=== PATIENT | female | born 1950 | race Caucasian/White ===

== ENCOUNTER 2018-09-08 08:54 | Observation (INO) ==
[2018-09-08] MEDS ORDERED: ASPIRIN CHEW 324 MG PO STA (09:16)
[2018-09-08 09:35] LABS: Basophils # (auto) 0.04 K/uL (0-0.2); Basophils % (auto) 0.5 %; Eosinophils # (auto) 0.13 K/uL (0-0.5); Eosinophils % (auto) 1.7 %; Hematocrit (blood only) 35.7 % (37-47); Hemoglobin 12.1 g/dL (12.0-16.0); Immature Granulocytes # (auto) 0.02 K/uL (0.00-0.02); Immature Granulocytes % (auto) 0.3 %; Lymphocytes # (auto) 1.54 K/uL (1.2-3.4); Lymphocytes % (auto) 20.7 %; Mean Corpuscular Hgb Conc 33.9 g/dL (32-36); Mean Corpuscular Volume 86.2 fL (80-100); Mean Platelet Volume 9.3 fL (7.4-10.4); Monocytes # (auto) 0.55 K/uL (0.11-0.59); Monocytes % (auto) 7.4 %; Neutrophils # (auto) 5.15 K/uL (1.4-6.5); Neutrophils % (auto) 69.4 %; Platelet Count 327 K/uL (130-400); RDW Coefficient of Variation 12.9 % (11.5-14.5); Red Blood Count 4.14 M/uL (4.2-5.4); White Blood Count 7.43 K/uL (4.8-10.8)
--- NOTE | 2018-09-08 09:35 | XRay Report ---
SINGLE VIEW CHEST CLINICAL HISTORY: Atypical chest pain. FINDINGS: An AP, portable, upright chest radiograph is obtained. No prior studies are available for c omparison at the time of dictation. The cardiomediastinal silhouette is unremarkable, noting atheros clerotic calcification of the thoracic aorta. There is mild bibasilar atelectasis. The lungs and pleu ral spaces are otherwise clear. No pneumothorax is seen. The skeletal structures are osteopenic. The bony thorax is grossly intact. IMPRESSION: No active disease in the chest. Electronically signed by: Gregg Merino M.D. 09/08/2018 9:34 AM
[2018-09-08 09:50] LABS: BUN Creatinine Ratio 21.2 (10-20); Calcium 10.1 mg/dl (8.5-10.1); Creatinine Clr Calc Pharmacy 65.8 ml/min; Est GFR (African American) 83.9; Est GFR (Non-African American) 72.4; Potassium 4.1 mmol/L (3.5-5.1)
[2018-09-08 09:53] LABS: Albumin Globulin Ratio 1.1 (0.9-2); Bilirubin,Total 0.3 mg/dl (0.2-1); Globulin 3.6 gm/dl (2.5-4.0); Total Protein 7.6 gm/dl (6.4-8.2)
[2018-09-08 10:05] LABS: Partial Thromboplastin Time 27.1 Seconds (21.0-31.0); Prothrombin Time 9.8 Seconds (9.0-12.0)
[2018-09-08 10:09] LABS: D Dimer 540 ug/L FEU (0-500)
[2018-09-08] MEDS ORDERED: OPTIRAY 320 125ml IV PRN (11:01)
--- NOTE | 2018-09-08 11:06 | CT Scan Report ---
CT ANGIOGRAM OF THE CHEST CLINICAL HISTORY: Atypical chest pain. Dyspnea. COMPARISON STUDY: Chest x-ray dated 09/08/2018. TECHNIQUE: Following the IV administration of 69 cc of Optiray 320, CT angiogram of the chest was per formed from the upper abdomen to the thoracic inlet utilizing the pulmonary embolus protocol. Images are reviewed in the axial, sagittal, and coronal planes. 3-D MIPS images are created and assessed. IV contrast was administered without complication. A dose lowering technique was utilized adhering to the principles of ALARA. CT DOSE: 254.02 mGy.cm FINDINGS: Thyroid: Imaged portions of the thyroid gland are normal in size and attenuation. Thoracic aorta: There is atherosclerotic calcification of the thoracic aorta, which is normal in lavell elisabeth and demonstrates standard 3-vessel arch anatomy. No dissection is seen. Pulmonary vasculature: The pulmonary trunk is normal in caliber. There are no filling defects identif ied in main, lobar, or segmental pulmonary branches to suggest pulmonary embolus. Heart: The heart is normal in size and without pericardial effusion. Lungs and pleural spaces: There is no airspace consolidation or pleural effusion. The trachea and jeniffer tral airways are clear. Dependent atelectasis is noted. There is mild diffuse peribronchial thickenin g. Mediastinum: There is no mediastinal lymphadenopathy. Darby: Clear. Axillae: There is no axillary lymphadenopathy. Upper abdomen: There is a small hiatal hernia. Partially visualized upper abdominal viscera is otherw ise within normal limits. Skeletal structures: The skeletal structures are osteopenic. No lytic or blastic bony lesions are see n. IMPRESSION: 1. There is no evidence of pulmonary embolus in the main, lobar, or segmental pulmonary arteries. 2. There is no airspace consolidation or pleural effusion. 3. Mild diffuse peribronchial thickening suggests reactive air disease. Clinical correlation will be required. Electronically signed by: Gregg Merino M.D. 09/08/2018 11:04 AM
--- NOTE | 2018-09-08 11:49 | History & Physical Report ---
Date of Service September 08, 2018 Assessment & Plan (1) Chest pain: Patient presents with chest pain or palpitations. She is a strong family history. She does take Zocor and aspirin. Reportedly she had a work-up 5 years ago in [place] which was unremarkable. In the ER she had negative troponin she had normal EKG showed a negative CTA and chest x-ray (although there might be some peribronchial thickening). Patient be brought in under observation she will be monitored have serial troponins checked and a stress echocardiogram is ordered for the morning with the assumption that the testing will be unremarkable. She will be kept n.p.o. after midnight. Lovenox abuse for DVT prevention. Maintained on aspirin 81 and Zocor 20. Her vitamins and probiotics will be held at this time History of Present Illness Primary Care Provider: BRAYAN SANCHES 67-year-old female who spends half her time in [place] half her time here presents with palpitations. These usually occur at night when resting. They are a feeling of intense heartbeat and her central to left chest. They are improved with movement and not worsened with movement. There is no associated symptoms with it. Patient does suffer from persistent allergies. She also has had a GI work-up in [place] most recently and did have some gastritis and reflux. Patient feels some of the symptoms did begin after starting a new brand of fish oil. The patient typically does see caregivers in the area including [facility] allergy Dr. Rojo and dermatology Dr. Walker. In the emergency department the patient had negative EKG she had no acute elevation of troponin Patient had a d-dimer 540 (normal is 500) and a CT angiogram with is unremarkable for pulmonary embolism does show some bronchial thickening consistent with her previous allergic and likely reflux state Home Medications Home Medications Medication Instructions Recorded Confirmed Type Ca-D3-mag lm-hrty-vav-gris-bor 2 tab PO QAM 09/08/18 09/08/18 History [Calcium 600-D3 Plus] Lactobac. rhamnosus GG-inulin 1 cap PO QAM 09/08/18 09/08/18 History [Culturelle Probiotics] aspirin [Aspir-Low] 81 mg PO DAILY 09/08/18 09/08/18 History coenzyme Q10 100 mg PO BID 09/08/18 09/08/18 History qfqglgch-ehu-SM-Ca carb-vit K 1 tab PO QAM 09/08/18 09/08/18 History [Women's 50 Plus Daily Formula] omega-3 fatty acids-fish oil [Fish 1 cap PO BID 09/08/18 09/08/18 History Oil] simvastatin 20 mg PO HS 09/08/18 09/08/18 History Past Med/Surg History Medical History Sinus complaint (Acute) Gastritis Seasonal allergies Family History Sister Heart disease Brother Heart disease Social History marital status: Current Living Situation: Spouse current occupational status: retired Feels Safe at Home: Yes Smoking Status: Never smoker Review of Systems Review of Systems: ROS: well nourished well developed. No double vision blurry vision No problems with speech or swallowing complains of sinus discharge which is clear and typical for her Planes of rapid pressure of heartbeat although her pulse of the time is in the 80s. No associated symptoms improved with exertion No Wheezing or breathing issues No abdominal pain nausea vomiting diarrhea changes in appetite or weight No burning urine urine frequency or changes in color No focal joint pain or muscle pain No skin rashes or oral lesions No unusual bruising or bleeding No focused back pain or numbness or loss of strength No changes in memory or confusion Physical Exam Physical Exam: The patient appeared well nourished and normally developed. Vital signs as documented. Head exam is unremarkable. normocephalic, atraumatic Neck is without jugular venous distension, thyromegaly, or lymphademopathy Lungs are clear to auscultation and percussion. Cardiac exam reveals Rhythm is regular. First and second heart sounds normal. Abdominal exam reveals normal bowel sounds, no masses, no organomegaly Extremities are nonedematous and both pedal pulses are present Neurologic exam is A&Ox3, no focal deficits, strength is equal bilateral Psychologically seems neither anxious or depressed Skin is warm Dry without bruises or lesions Results & Data Vital Signs (Past 12 Hours) Vital Signs Temp Pulse Pulse Resp BP BP Pulse Ox 09/08/18 11:13 75 17 151/75 H 98 09/08/18 09:30 73 18 150/102 H 94 09/08/18 09:09 81 19 171/102 H 98 09/08/18 08:58 36.7 C 88 18 176/88 H [address] angiogram . There is no evidence of pulmonary embolus in the main, lobar, or segmental pulmonary arteries. There is no airspace consolidation or pleural effusion. Mild diffuse peribronchial thickening suggests reactive air disease Chest x-ray is negative EKG shows normal sinus rhythm without any acute changes (1) Chest pain Chest pain type: unspecified Qualified Code(s): R07.9 - Chest pain, unspecified
[2018-09-08] MEDS ORDERED: ONDANSETRON INJ 2 MG/ML 2 ML VIAL IV PRN (13:09)
[2018-09-08] MEDS ORDERED: ALUMINUM/MAGNESIUM SUSP 30 ML UDC PO PRN (13:09)
[2018-09-08] MEDS ORDERED: NITROGLYCERIN SL 0.4 MG/TAB TAB SL PRN (13:09)
[2018-09-08] MEDS ORDERED: MoRPHine SULFATE 2 MG/ML CARP IV PRN (13:09)
[2018-09-08] MEDS ORDERED: ACETAMINOPHEN 325 MG TAB PO PRN (13:09)
[2018-09-08] MEDS ORDERED: ENOXAPARIN INJ 40 MG/0.4 ML SYR SQ SCH (14:00)
--- NOTE | 2018-09-08 15:51 | Emergency Department Note ---
Entered by Lyndsey Kearney acting as a scribe for Erasmo Marks MD History of Present Illness General Chief complaint: Chest Pain Stated complaint: CHEST PAIN PRESSURE Time Seen by Provider: 09/08/18 09:08 Source: patient History of Present Illness Onset (ago): day(s) 5 Location: chest Pain Consistency: + intermittent Maximum Pain Intensity: 4 Quality: + other (chest pressure) Relieved By: not by medication (baby aspirin) Exacerbated By: + movement (exertion) Associated symptoms: + shortness of breath (with exertion) and + other (racing heart rate, heart pounding) The patient is a 67 year old female that is presenting to the Emergency Room with complaints of intermittent episodes of chest pressure that started 4-5 days ago. The patient reports that she feels like her blood pressure is high at night and that she wakes up secondary to her heart pounding. She states that she has chest pressure during these episodes and that she feels like her heart is racing. The patient reports that her blood pressure delon to 160/93 during one episode. She states that her symptoms were worse last night than they had been on previous nights. She notes that she has slight shortness of breath with exertion with associated pressure in her chest. She reports that she has had similar episodes in the past 6 months but that they usually do not last for extended periods of time. The patient notes that she has significant family history for heart disease as both her brother and sister have had heart attacks in their 50s. She notes that her brother had 2 heart attacks in his 40s and at the age of 58. She states that her sister had a heart attack at the age of 58. The patient denies any personal medical history of heart disease or atrial fibrillation but notes that she does have Factor V Leiden. She denies any history of lung issues. She denies any history of thyroid issues. She notes that she has a history of sinus issues but that she has not been ill in recent months. She reports that she has a history of acid reflux. She denies taking any blood thinners other than a daily baby aspirin. She notes that her blood glucose levels are occasionally elevated. She denies having any recent heart work up or stress tests. She notes her last stress test was 5 years ago and that it was normal at that time. Home Medications Home Medications Medication Instructions Recorded Confirmed Type Ca-D3-mag we-rxse-fey-gris-bor 2 tab PO QAM 09/08/18 09/08/18 History [Calcium 600-D3 Plus] Lactobac. rhamnosus GG-inulin 1 cap PO QAM 09/08/18 09/08/18 History [Culturelle Probiotics] aspirin [Aspir-Low] 81 mg PO DAILY 09/08/18 09/08/18 History coenzyme Q10 100 mg PO BID 09/08/18 09/08/18 History eckipnam-lie-WB-Ca carb-vit K 1 tab PO QAM 09/08/18 09/08/18 History [Women's 50 Plus Daily Formula] omega-3 fatty acids-fish oil [Fish 1 cap PO BID 09/08/18 09/08/18 History Oil] simvastatin 20 mg PO HS 09/08/18 09/08/18 History Past Med/Surg History Medical History Sinus complaint (Acute) Gastritis Seasonal allergies Family History Sister Heart disease Brother Heart disease Social History Preferred Language: Chinese Communication Ability: Effective Beliefs That Will Affect Care: None marital status: Current Living Situation: Spouse current occupational status: retired Other Information That Helps Us Care for You: No Feels Safe at Home: Yes Safety Concerns: Feels Safe At This Time Smoking Status: Never smoker Hx Alcohol Use: No Hx Substance Use: No Review of Systems See HPI for pertinent positives & negatives. and A total of 10 systems reviewed and were otherwise negative Physical Exam Vital Signs Vital Signs - 24 hr 09/08/18 08:58 09/08/18 09:09 09/08/18 09:30 Temperature 36.7 C Temperature Source Oral Sepsis Recent Fever Within 48 Hours No Sepsis Action Taken by Nursing No Action Required Pulse Rate 88 Pulse Rate [Apical] 81 73 Pulse Rhythm Regular Pulse Rhythm [Apical] Regular Regular Pulse Strength Normal Pulse Strength [Apical] Normal Respiratory Rate 18 19 18 Respiratory Effort / Characteristics Non-Labored Non-Labored Non-Labored Spontaneous Respiratory Depth Normal Normal Normal Respiratory Pattern Regular Regular Regular Blood Pressure 176/88 H Blood Pressure [Right Arm] 171/102 H 150/102 H Blood Pressure Mean 117 Blood Pressure Mean [Right Arm] 125 118 Blood Pressure Position Sitting Blood Pressure Position [Right Arm] Sitting Pulse Oximetry 97 98 94 Oxygen Delivery Method Room Air Room Air Room Air Oxygen Flow Rate 0 09/08/18 11:13 09/08/18 12:43 09/08/18 13:00 Temperature 37.0 C Temperature Source Oral Sepsis Recent Fever Within 48 Hours Sepsis Action Taken by Nursing Pulse Rate 68 Pulse Rate [Apical] 75 91 H Pulse Rhythm Pulse Rhythm [Apical] Regular Regular Pulse Strength Pulse Strength [Apical] Normal Respiratory Rate 17 18 18 Respiratory Effort / Characteristics Non-Labored Spontaneous Non-Labored Respiratory Depth Normal Normal Respiratory Pattern Regular Regular Blood Pressure 145/97 H Blood Pressure [Right Arm] 151/75 H 121/82 Blood Pressure Mean Blood Pressure Mean [Right Arm] 100 95 Blood Pressure Position Blood Pressure Position [Right Arm] Pulse Oximetry 98 97 95 Oxygen Delivery Method Room Air Room Air Room Air Oxygen Flow Rate General: Non-ill appearing older female in no acute distress. HEENT: Normal cephalic atraumatic. Pupils are equal round and reactive to light. Extraocular movements are intact. Oropharynx is pink with moist mucous membranes. No swelling of the mouth lips or tongue. Neck: Supple with a midline trachea. No meningeal signs or stiffness, no JVD or bruits. No Stridor. Chest: Clear to auscultation bilaterally. No wheezes or rhonchi. No increased work of breathing. Heart: regular rate and rhythm. Abdomen: Soft nontender, nondistended without rebound guarding or rigidity. Extremities: No cyanosis clubbing or edema. No calf tenderness or asymmetry Spine/Back. Non tender to palpation. No CVA tenderness Skin: Good turgor without rashes. Neurologic exam: Cranial nerves two through 12 are intact. Motor and sensation are intact and symmetrical throughout. Course 0915:The patient was evaluated in room B03B. A complete history and physical examination was performed. 1027: I reevaluated the patient who is resting comfortably. I ordered a CT scan of the patient's chest and a repeat troponin at this time. 1126: I reevaluated the patient who continues to rest comfortably. 1140: I discussed the patient's case with Dr. Cao, [facility], who will evaluate the patient for further management and care. 1150: Upon reevaluation, the patient is resting comfortably. I discussed laboratory and radiographic results with the patient. She verbalized agreement of the treatment plan. The patient will be evaluated for further management and care. Consultations Consultation #1: I discussed the patient's case with Dr. Cao [facility], who wi ll evaluate the patient for further management and care. Time: 11:40 Administered Medications Discontinued Medications Aspirin (Aspirin) 324 mg PO NOW STA Stop: 09/08/18 09:17 Last Admin: 09/08/18 09:36 Dose: 324 mg Documented by: [id number] Enoxaparin Sodium (Lovenox) 40 mg SQ Q24H RENO Stop: 10/08/18 13:59 Last Admin: 09/08/18 15:03 Dose: Not Given Documented by: [id number] Ioversol (Optiray 320 125ml) 69 ml IV ONCE PRN PRN Reason: Interaction Checking Stop: 09/12/18 11:00 Last Admin: 09/08/18 11:01 Dose: 69 ml Documented by: [id number] Medical Decision Making Differential Diagnosis Differential diagnosis includes: Etiologies such as acute coronary syndrome, hypertension, palpitations, arrhythmia, PE, electrolyte or metabolic abnormalities as well as others were entertained. Medical Records Attestation: I reviewed the patient's medical records. Home Medications Current Medication List: was personally reviewed by me Laboratory Data Attestation: I reviewed the patient's lab results. Result diagrams: 09/08/18 09:24 09/08/18 09:24 Lab Results 09/08/18 09/08/18 09/08/18 Range/Units 09:24 09:24 09:24 WBC 7.43 (4.8-10.8) K/uL RBC 4.14 L (4.2-5.4) M/uL Hgb 12.1 (12.0-16.0) g/dL Hct 35.7 L (37-47) % MCV 86.2 (80-100) fL MCH 29.2 (25-34) pg MCHC 33.9 (32-36) g/dL RDW Std Deviation 41.0 (36.4-46.3) fL RDW Coeff of Don 12.9 (11.5-14.5) % Plt Count 327 (130-400) K/uL MPV 9.3 (7.4-10.4) fL Immature Gran % (Auto) 0.3 % Neut % (Auto) 69.4 % Lymph % (Auto) 20.7 % [place] % (Auto) 7.4 % Eos % (Auto) 1.7 % Baso % (Auto) 0.5 % Immature Gran # (Auto) 0.02 (0.00-0.02) K/uL Neut # (Auto) 5.15 (1.4-6.5) K/uL Lymph # (Auto) 1.54 (1.2-3.4) K/uL [place] # (Auto) 0.55 (0.11-0.59) K/uL Eos # (Auto) 0.13 (0-0.5) K/uL Baso # (Auto) 0.04 (0-0.2) K/uL PT 9.8 (9.0-12.0) Seconds INR 1.0 (0.9-1.1) APTT 27.1 (21.0-31.0) Seconds PTT Ratio 1.0 D-Dimer 540 H* (0-500) ug/L FEU Sodium 139 (136-145) mmol/L Potassium 4.1 (3.5-5.1) mmol/L Chloride 107 (98-107) mmol/L Carbon Dioxide 27 (21-32) mmol/L Anion Gap 6.0 (3-11) BUN 18 (7-18) mg/dl Creatinine 0.84 (0.6-1.2) mg/dl Est Cr Clr Drug Dosing 65.8 ml/min Est GFR ( Amer) 83.9 Est GFR (Non-Af Amer) 72.4 BUN/Creatinine Ratio 21.2 H (10-20) Glucose 101 H (70-99) mg/dl Calcium 10.1 (8.5-10.1) mg/dl Total Bilirubin 0.3 (0.2-1) mg/dl AST 20 (15-37) U/L ALT 34 (12-78) U/L Alkaline Phosphatase 89 (45-117) U/L POC Troponin I (0-0.045) ng/ml Total Protein 7.6 (6.4-8.2) gm/dl Albumin 4.0 (3.4-5.0) gm/dl Globulin 3.6 (2.5-4.0) gm/dl Albumin/Globulin Ratio 1.1 (0.9-2) Lipase 100 (73-393) U/L 09/08/18 09/08/18 Range/Units 09:30 11:11 WBC (4.8-10.8) K/uL RBC (4.2-5.4) M/uL Hgb (12.0-16.0) g/dL Hct (37-47) % MCV (80-100) fL MCH (25-34) pg MCHC (32-36) g/dL RDW Std Deviation (36.4-46.3) fL RDW Coeff of Don (11.5-14.5) % Plt Count (130-400) K/uL MPV (7.4-10.4) fL Immature Gran % (Auto) % Neut % (Auto) % Lymph % (Auto) % [place] % (Auto) % Eos % (Auto) % Baso % (Auto) % Immature Gran # (Auto) (0.00-0.02) K/uL Neut # (Auto) (1.4-6.5) K/uL Lymph # (Auto) (1.2-3.4) K/uL [place] # (Auto) (0.11-0.59) K/uL Eos # (Auto) (0-0.5) K/uL Baso # (Auto) (0-0.2) K/uL PT (9.0-12.0) Seconds INR (0.9-1.1) APTT (21.0-31.0) Seconds PTT Ratio D-Dimer (0-500) ug/L FEU Sodium (136-145) mmol/L Potassium (3.5-5.1) mmol/L Chloride (98-107) mmol/L Carbon Dioxide (21-32) mmol/L Anion Gap (3-11) BUN (7-18) mg/dl Creatinine (0.6-1.2) mg/dl Est Cr Clr Drug Dosing ml/min Est GFR ( Amer) Est GFR (Non-Af Amer) BUN/Creatinine Ratio (10-20) Glucose (70-99) mg/dl Calcium (8.5-10.1) mg/dl Total Bilirubin (0.2-1) mg/dl AST (15-37) U/L ALT (12-78) U/L Alkaline Phosphatase (45-117) U/L POC Troponin I < 0.03 < 0.03 (0-0.045) ng/ml Total Protein (6.4-8.2) gm/dl Albumin (3.4-5.0) gm/dl Globulin (2.5-4.0) gm/dl Albumin/Globulin Ratio (0.9-2) Lipase (73-393) U/L Imaging Data Radiologist's Impression: Radiology results as stated below per my review and the radiologist's interpretation: SINGLE VIEW CHEST CLINICAL HISTORY: Atypical chest pain. FINDINGS: An AP, portable, upright chest radiograph is obtained. No prior studies are available for comparison at the time of dictation. The cardiomediastinal silhouette is unremarkable, noting atherosclerotic calcification of the thoracic aorta. There is mild bibasilar atelectasis. The lungs and pleural spaces are otherwise clear. No pneumothorax is seen. The skeletal structures are osteopenic. The bony thorax is grossly intact. IMPRESSION: No active disease in the chest. Electronically signed by: Gregg Merino M.D. 09/08/2018 9:[address] ANGIOGRAM OF THE CHEST CLINICAL HISTORY: Atypical chest pain. Dyspnea. COMPARISON STUDY: Chest x-ray dated 09/08/2018. TECHNIQUE: Following the IV administration of 69 cc of Optiray 320, CT angiogram of the chest was performed from the upper abdomen to the thoracic inlet utilizing the pulmonary embolus protocol. Images are reviewed in the axial, sagittal, and coronal planes. 3-D MIPS images are created and assessed. IV contrast was administered without complication. A dose lowering technique was utilized adhering to the principles of ALARA. CT DOSE: 254.02 mGy.cm FINDINGS: Thyroid: Imaged portions of the thyroid gland are normal in size and attenuation. Thoracic aorta: There is atherosclerotic calcification of the thoracic aorta, which is normal in caliber and demonstrates standard 3-vessel arch anatomy. No dissection is seen. Pulmonary vasculature: The pulmonary trunk is normal in caliber. There are no filling defects identified in main, lobar, or segmental pulmonary branches to suggest pulmonary embolus. Heart: The heart is normal in size and without pericardial effusion. Lungs and pleural spaces: There is no airspace consolidation or pleural effusion. The trachea and central airways are clear. Dependent atelectasis is noted. There is mild diffuse peribronchial thickening. Mediastinum: There is no mediastinal lymphadenopathy. Darby: Clear. Axillae: There is no axillary lymphadenopathy. Upper abdomen: There is a small hiatal hernia. Partially visualized upper abdominal viscera is otherwise within normal limits. Skeletal structures: The skeletal structures are osteopenic. No lytic or blastic bony lesions are seen. IMPRESSION: 1. There is no evidence of pulmonary embolus in the main, lobar, or segmental pulmonary arteries. 2. There is no airspace consolidation or pleural effusion. 3. Mild diffuse peribronchial thickening suggests reactive air disease. Clinical correlation will be required. Electronically signed by: Gregg Merino M.D. 09/08/2018 11:04 AM ECG Data Attestation: I personally reviewed and interpreted this ECG as follows: Indication: chest pain Rate (beats per minute): 76 Rhythm: normal sinus Findings: no PAC, no PVC, no ST depression, no ST elevation, no acute ischemic change and no ectopy Comparison ECG Date: no prior available Additional Comments: Repeat ECG: normal sinus at a rate of 74 bpm without any acute ischemic changes or ectopy. No significant changes noted from ECG taken earlier today and reported above. Blood Pressure Blood Pressure Findings: Elevated blood pressure Blood Pressure Disposition: further management by hospitalist BRANDT Narrative This patient comes in as described above. She was placed in room B3. She has had some chest heaviness and palpitation type symptoms for the last couple days mostly at night. No shortness of breath. She has no known cardiac disease and had a reported negative cardiac work-up about 5 years ago. She does however have very strong family history with siblings having cardiac disease in the 40s and 50s. Additionally, she does have factor V Leiden deficiency. IV access established, EKG, chest x-ray, and multiple blood testing was obtained. EKG weiner s not show any definite acute ischemic changes. There is no old available for for comparison as she has never been to this hospital before. I did a second EKG and there is no significant change compared to the first. She had 2 troponins done in the ER which were both negative and unchanged between each other. She has no significant electrolyte or metabolic abnormalities. Chest x- ray was unremarkable. there is no evidence suggest congestive heart failure, pneumonia ,or pneumothorax. Her d-dimer was mildly elevated at just over 500 and I did a chest CT there is no evidence of PE or other significant pathology to explain her symptoms. Given her cardiac risk factors ,I do think she needs to be admitted/observe for cardiac rule out she will likely need further cardiac evaluation and follow-up as well. I have consulted the [facility] hospitalist and they saw her in the ER for these measures. Impression & Plan Chest pain, Factor V Leiden Discharge Plan Visit Data *Final* Discharge Date/Time: 09/08/18 12:43 Chief Complaint: Chest Pain Stated Complaint: CHEST PAIN PRESSURE ED Provider: Erasmo Marks Discharge Problem: Chest pain, Factor V Leiden Patient Disposition: Admitted As Inpatient Discharge Instructions Interventions: ED Discharge Assessment Last Done: 09/08/18 12:43 The scribe's documentation has been prepared under my direction and personally reviewed by me in its entirety. I confirm that the note above accurately reflects all work, treatment, procedures, and medical decision making performed by me.
[2018-09-08] MEDS ORDERED: SIMVASTATIN 20 MG TAB PO SCH (21:00)
[2018-09-09 06:53] LABS: BUN Creatinine Ratio 21.6 (10-20); Calcium 9.3 mg/dl (8.5-10.1); Creatinine Clr Calc Pharmacy 64.4 ml/min; Est GFR (African American) 82.8; Est GFR (Non-African American) 71.4; Potassium 4.2 mmol/L (3.5-5.1)
[2018-09-09] MEDS ORDERED: ASPIRIN 81 MG ECTAB PO SCH (09:00)
[2018-09-09] MEDS ORDERED: PERFLUTREN LIPID MICROSPHERE (DEFINITY) IV ONE (10:02)
--- NOTE | 2018-09-09 11:48 | Medical Student Progress Note ---
Date of Service September 09, 2018 Assessment & Plan (1) Chest pain: 67 yo F w/ hx of hyperlipidemia and fh of [place] here for observation and acardiac workup for chest pain, currently stable Chest pain likely secondary to GERD given cardiac workup has been negative: Serial Trops <.015 Unchanged EKG, with no signs of ST depression, elevation or T wave changes Negative CTA Negative CXR Stress Echo was normal Pt had been NPO since had been awaiting stress echo, safe to take pt off of NPO For chest pain, GI cocktail given prn Q6h, nitro prn, and morphine prn, and tyelnol prn q4 had been ordered Chest pain type: unspecified Qualified Code(s): R07.9 - Chest pain, unspecified (2) Palpitations: Telemetry showed pt was in sinus rhythm overnight and during the morning, no signs of tachycardia TSH was normal, r/o hyperthyroidism Palpitations not likely to have cardiac etiology, pt does state that she has anxiety; however, her anxiety had never been associated with palpitations in the past, consider metoprolol to provide pt with sx relief, would also be a good choice to control elevated blood pressure readings (3) Elevated blood pressure reading: Found to have elevated readings while 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 Followed up with PCP in [place] who recommended she start lisinopril and purchase a blood pressure cuff to take measurements at home. Pt did not start lisinopril due to side effect fear of developing dry cough. Pt was taking bp readings at home and was (4) Factor V Leiden: Takes aspirin daily, anticoagulation not indicated due to no hx of VTE (5) Sinus complaint: stable, CXR does show some peribronchial thickening most likely secondary to post nasal drip Supervising Attestation See my note for details Subjective Pt is a 67 yo F w/ pmh of hyperlipidemia and Factor V Leiden on Day 1 of admission for chest pain and palpitations. Chest has been intermittent for the last few months and is accompanied by slight shortness of breath w/ exertion. Pt remarks that chest pain feels like a pressure sitting on her chest and has felt the pressure has gotten worse since stopping her Ranitidine. Pt has been experiencing palpitations that usually start at night as the pt is ready to get into bed. In the last few days, these palpitations have lasted longer and recently woke the pt up from sleep. Pt has also noticed that her blood pressure readings have been elevated. She recently bought a blood pressure cuff and started taking her blood pressure throughout the day after her PCP had recommended she do so and had prescribed her lisinopril. Pt has not started taking the lisinopril. Upon admission to the ED, pt's bp was elevated at 150/100. Poc troponins were negative, but pt was admitted for observation. Today, pt states she is doing better and complains of no chest pain. She states that she did not experience any episodes of palpitations while on telemetry. pmh: hld, allergic rhinitis, gerd, hx cdiffe meds: aspirin, simvastatin, omega 3, lactobacillus, Ca, CoQ10 shx: sinus surgery, egd, colonoscopy fh: 2 brothers and 1 sister have coronary artery disease and hx of [place], brother of [place] Sh: , non smoker, no alcohol use Physical Exam Vital Signs (Past 24 Hours): Last Vital Signs Temp 36.7 C 09/09/18 08:03 Pulse 83 09/09/18 08:03 Resp 17 09/09/18 08:03 BP 139/77 09/09/18 08:03 Pulse Ox 96 09/09/18 08:03 Constitutional: WD/WN, vitals as above Eyes: PERRL, conjunctivae normal, anicteric sclerae ENMT: external ear and nose normal, oropharynx normal Neck: trachea midline, no thyromegaly Respiratory: normal respiratory effort, lungs clear to auscultation Cardiovascular: RRR, no murmur, no edema Gastrointestinal (Abdomen): normal bowel sounds, soft, nontender, no hepatosplenomegaly Musculoskeletal: no cyanosis or clubbing, extremities motor strength 5/5 IV on R. hand Results & Data Laboratory Results WBC: 7.43 RBC: 4.14 Hgb: 12.1 Hct: 35.7 Na: 140 K: 4.2 Cl: 107 HCO3: 28 BUN: 18 Cr: .83 Glu: 104 Ddimer: 540 Triglycerides: 211 TSH: 1.7 Trop1: <.015 Trop 2: <.015 Diagnostic Findings EKG: normul sinus rhythm, no acute changes on serial EKGs CXR: negative for acute processes CTA: unremarkable, athlerosclerosis of thoracic aorta visualized, some peribronchiole thickening
--- NOTE | 2018-09-09 14:57 | Discharge Summary ---
Date of Service September 09, 2018 Admission HPI Per Admitting Provider 67-year-old female who spends half her time in [place] half her time here presents with palpitations. These usually occur at night when resting. They are a feeling of intense heartbeat and her central to left chest. They are improved with movement and not worsened with movement. There is no associated symptoms with it. Patient does suffer from persistent allergies. She also has had a GI work-up in [place] most recently and did have some gastritis and reflux. Patient feels some of the symptoms did begin after starting a new brand of fish oil. The patient typically does see caregivers in the area including [facility] allergy Dr. Rojo and dermatology Dr. Walker. In the emergency department the patient had negative EKG she had no acute elevation of troponin Patient had a d-dimer 540 (normal is 500) and a CT angiogram with is unremarkable for pulmonary embolism does show some bronchial thickening consistent with her previous allergic and likely reflux state Principal Diagnosis Pt had no chest pain last night. She had no palpitations. She tolerated PO today. Pt states she has had ongoing issues with reflux. She went off of ranitidine and her reflux has been much more intense, particularly with spicy foods. If she eats fish for dinner, she does not have any issues. She had pizza a few nights ago and that was a problem. She has palpitations when this happens. She has been checking her BP at home and it is around 140 systolic. She was recommended to start lisinopril a few months ago by her PCP for elevated BP, however she did not start this due to ongoing issues with a cough and she was concerned this might make her cough worse. She is generally constipated and does not have a bowel movement daily. When she does, it is hard stool and difficult to pass. Pt denies fever, SOB, abd pain, n/v, LE pain or swelling. She does not drink much water. Discharge Exam Constitutional WD/WN, vitals as above Eyes normal visual landrum by confrontation and + anicteric sclerae Neck normal visual inspection and trachea midline Respiratory normal respiratory effort, lungs clear to auscultation Cardiovascular Rate/Rhythm: regular rate and regular rhythm Gastrointestinal (Abdomen) Inspection/Auscultation: abdomen not distended Percussion/Palpation: abdomen soft; abdomen nontender Musculoskeletal Head/Neck/Chest: normocephalic and head atraumatic Skin no rashes, warm and dry Neurologic awake; not confused Speech / Cognition: normal speech Psychiatric A+Ox3, euthymic affect Discharge Data Ordered Studies 09/08/18 10:18 CT angio chest PE protocol Stat Hospital Course (1) Chest pain: Patient presents with chest pain or palpitations. She is a strong family history. She does take Zocor and aspirin. Reportedly she had a work-up 5 years ago in [place] which was unremarkable. In the ER she had negative troponin she had normal EKG showed a negative CTA and chest x-ray (although there might be some peribronchial thickening). Trops neg x3 Stress ECHO WNL at 100% exertion. EF 60-65% and no wall motion abnormalities noted EKG NSR No tele events noted No chest pain or palpitations during admission Pt notes that she did not eat spicy food last night Maintained on aspirin 81 and Zocor 20. Pt is reluctant to start medication at this time. It does seem reasonable that her chest pain and palpitations are the result of her uncontrolled GERD. Discussed role of probiotics and use of marshmallow root extract as pt prefers to not use PPI or H2 lauren due to those not working or causing worsening sx in the past. Gave pt several options for BP control. She would like to continue working on her GERD sx and monitor her BP at home. She states she usually runs around 140s systolic. Advised that she could pursue a 4-8 week trial to see if controlling her GERD sx help with her BP and palpitations. Gave scripts for meds as listed below. Pt has f/u with PCP in [place] in November. Advised to discuss sooner if there are more BP issues. Total Time Total Time Spent Total Time Spent (In Minutes): >30 minutes Discharge Plan Discharge Items Patient Disposition: Home - Self-Care Reason For Visit: CHEST PAIN Discharge Diagnosis: chest pain Discharge Goals: Improve disease control, Improve function and Prevent disease Activity: Resume your previous activity Non-emergency contact: Primary Care Provider Call non-emergency contact if: you have any medication questions, your symptoms worsen and your pain is concerning for you Follow-up/Referrals: Cl Meier, [Primary Care Provider] - Diet: Low Sodium (2gm) Addtl Provider Instructions: You may find that a probiotic is helpful for your heartburn issues. A brand that I recommend is Jarrow EPS 5billion. You can buy this at [employer]. You may also find that drinking xin root extract is helpful for your heartburn. You can mix this in water and drink it on an empty stomach. Some people like to take it first thing in the morning, but you might find it helpful to take between lunch and dinner as it sounds like dinner is the meal that can be most troublesome for you. You can find this at [employer] as well, or online. It is also sold as a losange form that you can keep with you in case of unexpected trigger foods. I am giving you a prescription for two different blood pressure medications. You should check your BP daily and record your findings. If your BP remains over 140 (top number) and you continue to have palpitations at night, you should take the metoprolol. If your BP remains over 140 (top number) and the palpitations have resolved because your reflux is better controlled, you can use either the lisinopril that your PCP prescribed or the losartan, which does not have cough as a common side effect. Prescriptions: New metoprolol succinate 25 mg tablet extended release 24 hr 25 mg PO DAILY Qty: 30 RF: 0 losartan 25 mg tablet 25 mg PO DAILY Qty: 30 RF: 0 Continued aspirin [Aspir-Low] 81 mg Tablet,Delayed Release (Dr/Ec) 81 mg PO DAILY RF: 0 simvastatin 20 mg Tablet 20 mg PO HS RF: 0 omega-3 fatty acids-fish oil [Fish Oil] 300-1,000 mg Capsule 1 cap PO BID RF: 0 coenzyme Q10 100 mg Tablet 100 mg PO BID RF: 0 Women's 50 Plus Daily Formula 400 mcg-500 mg calcium-20 mcg Tablet 1 tab PO QAM RF: 0 Ca-D3-mag [id number] [Calcium 600-D3 Plus] 600 mg calcium- 800 unit- 50 mg Tablet 2 tab PO QAM RF: 0 Culturelle Probiotics 10 billion cell -200 mg Capsule 1 cap PO QAM RF: 0 Stand-Alone Forms: Call Back Authorization, [facility] Discharge Orders: Discharge Order (Routine); Ordered 09/09/18 Ordered By: Nuris Patel Admission Data Admit Date/Time: 09/08/18 11:53 Attending Provider: Nuris Patel Admit Provider: Michael Cao Primary Care Provider: Cl Meier Service: Telemetry Other Interventions: Discharge Summary Assessment (RN) Last Done: 09/09/18 15:04 Pending Studies at Discharge: No DC Date/Time DO NOT enter until pt leaves facility: 09/09/18 15:15
== END 2018-09-09 15:15 | disposition home or self-care (01) ==
LOC: 2N 08:54 → ED 08:54 → SUATTDRO 11:53 → 2N 12:43

== ENCOUNTER 2019-01-15 13:52 | Inpatient (IN) ==
[2019-01-15] MEDS ORDERED: ONDANSETRON INJ 2 MG/ML 2 ML VIAL IV STA (15:11)
[2019-01-15] MEDS ORDERED: ACETAMINOPHEN 1,000 MG/100 ML VIAL IV STA (15:11)
[2019-01-15] MEDS ORDERED: SODIUM CHLORIDE 0.9% 1000ML 1,000 ML IV ONE (15:11)
[2019-01-15 16:06] LABS: Hematocrit (blood only) 34.3 % (37-47); Hemoglobin 11.6 g/dL (12.0-16.0); Mean Corpuscular Hgb Conc 33.8 g/dL (32-36); Mean Corpuscular Volume 85.8 fL (80-100); Mean Platelet Volume 9.2 fL (7.4-10.4); Platelet Count 372 K/uL (130-400); RDW Coefficient of Variation 13.4 % (11.5-14.5); RDW Standard Deviation 41.8 fL (36.4-46.3); White Blood Count 20.98 K/uL (4.8-10.8)
[2019-01-15 16:27] LABS: Alanine Aminotransferase 33 U/L (12-78); Albumin Level 3.6 gm/dl (3.4-5.0); Aspartate Aminotransferase 14 U/L (15-37); BUN Creatinine Ratio 15.7 (10-20); Blood Urea Nitrogen 13 mg/dl (7-18); Calcium 8.7 mg/dl (8.5-10.1); Carbon Dioxide 24 mmol/L (21-32); Chloride 105 mmol/L (98-107); Creatinine Clr Calc Pharmacy 69.1 ml/min; Est GFR (African American) 83.4; Est GFR (Non-African American) 71.9; Glucose 115 mg/dl (70-99); Potassium 3.3 mmol/L (3.5-5.1); Sodium 139 mmol/L (136-145)
[2019-01-15 16:30] LABS: Basophils # (auto) 0.03 K/uL (0-0.2); Basophils % (auto) 0.1 %; Immature Granulocytes # (auto) 0.11 K/uL (0.00-0.02); Immature Granulocytes % (auto) 0.5 %; Lymphocytes # (auto) 0.94 K/uL (1.2-3.4); Lymphocytes % (auto) 4.5 %; Monocytes # (auto) 0.85 K/uL (0.11-0.59); Monocytes % (auto) 4.1 %; Neutrophils # (auto) 19.05 K/uL (1.4-6.5); Neutrophils % (auto) 90.8 %
[2019-01-15 16:32] LABS: Albumin Globulin Ratio 0.9 (0.9-2); Alkaline Phosphatase 74 U/L (45-117); Bilirubin,Total 0.4 mg/dl (0.2-1); Globulin 3.9 gm/dl (2.5-4.0); Total Protein 7.5 gm/dl (6.4-8.2); Troponin I < 0.015 ng/ml (0-0.045)
--- NOTE | 2019-01-15 17:24 | Emergency Department Note ---
Entered by Rachell Larose acting as a scribe for Sailaja Goodwin DO History of Present Illness General Chief complaint: GI Assessment Stated complaint: FEVER,DIARRHEA,STOMACH PAIN,BLOODY STOOLS Time Seen by Provider: 01/15/19 14:47 Source: patient Mode of arrival: ambulatory Limitations: no limitations History of Present Illness Provider complaint: Abdominal pain and diarrhea Onset (ago): day(s) Location: abdomen Radiation: non-radiation Severity: severe Pain Consistency: + colicky Current Pain Intensity: 0 Quality: + stabbing and + sharp Relieved By: + none Exacerbated By: + none Associated symptoms: + fever/chills and + nausea/vomiting Treatments prior to arrival: none This is a 68-year-old female who presents the emergency room today with complaints of worsening abdominal pain, fevers, bloody diarrhea. Patient states last week while in [place] she had the onset of the same symptoms and was seen and evaluated in the emergency room down there. She states she had blood work done and a CAT scan performed and was told she had "inflammation along her colon". But that there was no clear etiology. Patient denies any prior history of IBS or IBD. Patient states that following that visit she was started on 2 antibiotics, ciprofloxacin and Flagyl, given medication for pain and nausea and was discharged. Patient states she took those medications so she followed up with her family doctor 2 days ago. She was told by the family doctor she could stop the antibiotics that she is already had 5 days worth and was experiencing many side effects. Patient states she felt well until last night when all of her symptoms began again and now feel more severe when they were at the outset. Patient denies any recent international travel, no change in diet, no sick contacts. Patient has previously had a colonoscopy that was reported to her as well appearing. Patient states her fever at home reached 101.5 F. She has been using Tylenol and ibuprofen for fevers and pain. Patient states her abdominal pain is mostly in her lower abdomen and she experiences a sudden sharp severe pain however this is relieved once she has an episode of diarrhea again. Patient states she is noting both blood and mucus with her stool. Home Medications Home Medications Medication Instructions Recorded Confirmed Type acetaminophen [Tylenol] 650 mg PO Q6H PRN 01/15/19 01/15/19 History azelastine 1 spray INTRANASAL DAILY 01/15/19 01/15/19 History fluticasone propionate [Flonase 1 spray INTRANASAL DAILY 01/15/19 01/15/19 History Allergy Relief] Allergies Allergy/AdvReac Type Severity Reaction Status Date / Time Penicillins AdvReac Intermediate Rash Unverified 01/15/19 15:15 Sulfa (Sulfonamide AdvReac Intermediate Rash Unverified 01/15/19 15:15 Antibiotics) Past Med/Surg History Medical History Sinus complaint (Acute) Gastritis Seasonal allergies Family History Sister Heart disease Brother Heart disease Social History Preferred Language: Icelandic Communication Ability: Effective 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 and A total of 10 systems reviewed and were otherwise negative Physical Exam Vital Signs Vital Signs - 24 hr 01/15/19 14:07 01/15/19 15:29 01/15/19 15:30 Temperature 37.7 C H Temperature Source Oral Sepsis Recent Fever Within 48 Hours No Sepsis New/Unexplained Change in Mental Status No Sepsis Action Taken by Nursing No Action Required Pulse Rate 117 H 103 H 103 H Pulse Rate from SpO2 Sensor Respiratory Rate 20 17 14 Blood Pressure 153/78 H Blood Pressure Mean 103 Blood Pressure Position Sitting Pulse Oximetry 94 01/15/19 16:00 01/15/19 16:30 01/15/19 17:01 Temperature Temperature Source Sepsis Recent Fever Within 48 Hours Sepsis New/Unexplained Change in Mental Status Sepsis Action Taken by Nursing Pulse Rate 94 H 94 H 107 H Pulse Rate from SpO2 Sensor 94 H 94 H Respiratory Rate 14 18 28 H Blood Pressure Blood Pressure Mean Blood Pressure Position Pulse Oximetry 95 94 GENERAL: alert, well appearing, well nourished, no distress, non-toxic EYE EXAM: normal conjunctiva, PERRL and EOM's grossly intact OROPHARYNX: no exudate, no erythema, lips, buccal mucosa, and tongue normal and mucous membranes are moist NECK: supple, no nuchal rigidity, no adenopathy, non-tender LUNGS: Clear to auscultation. Normal chest wall mechanics, no w/r/r HEART: no murmurs, S1 normal and S2 normal ABDOMEN: abdomen soft, non-tender, normo-active bowel sounds, no masses, no re bound or guarding. BACK: Back is symmetrical on inspection and there is no deformity, no midline tenderness, no CVA tenderness. SKIN: no rashes and no bruising UPPER EXTREMITIES: upper extremities are grossly normal. FROM, nml pulses b/l. LOWER EXTREMITIES: No pitting edema. FROM, nml pulses b/l. NEURO EXAM: Normal sensorium, cranial nerves II-XII grossly intact, normal speech, no gross weakness of arms, no gross weakness of legs. Course 1509: Past medical records reviewed. The patient was evaluated in room C03. A complete history and physical exam was performed. 1545: I obtained patient's records from [facility] from 01/05/2019. 1635: I reevaluated and discussed the test results with the patient. The patient states she took a course of Clarithromycin at the end of November and she previously had C-Diff. The patient is resting comfortably. 1838: I spoke with the patient about staying overnight and she is understanding and agreeable to treatment 1845: I spoke with Dr. Sibley about the patient's case and she will accept the patient for further evaluation. Administered Medications Acetaminophen (Tylenol) 650 mg PO Q6H PRN PRN Reason: Pain Stop: 02/14/19 21:27 Last Admin: 01/16/19 06:02 Dose: 650 mg Documented by: [id number] Aspirin (Ecotrin Ectab) 81 mg PO QAM [facility] Stop: 02/15/19 08:59 Last Admin: 01/17/19 07:55 Dose: 81 mg Documented by: [id number] Admin: 01/16/19 07:56 Dose: 81 mg Documented by: [id number] Enoxaparin Sodium (Lovenox) 40 mg SQ Q24H [facility] Stop: 02/14/19 21:27 Last Admin: 01/16/19 21:02 Dose: Not Given Documented by: [id number] Admin: 01/15/19 22:44 Dose: 40 mg Documented by: [id number] Fluticasone Propionate (Flonase) 1 sprays NA DAILY [facility] Stop: 02/15/19 08:59 Last Admin: 01/17/19 07:55 Dose: 1 sprays Documented by: [id number] Admin: 01/16/19 07:57 Dose: 1 sprays Documented by: [id number] Potassium Chloride/Sodium Chloride (Normal Saline W/20 Meq Kcl) 20 meq in 1,000 mls @ 125 mls/hr IV .Q8H [facility] Stop: 02/15/19 08:59 Last Infusion: 01/17/19 13:39 Dose: 0 mls/hr Documented by: [id number] Admin: 01/17/19 08:20 Dose: 125 mls/hr Documented by: [id number] Infusion: 01/17/19 08:20 Dose: 125 mls/hr Documented by: [id number] Admin: 01/17/19 02:13 Dose: 125 mls/hr Documented by: [id number] Infusion: 01/17/19 02:12 Dose: 0 mls/hr Documented by: [id number] Admin: 01/16/19 17:43 Dose: 125 mls/hr Documented by: [id number] Infusion: 01/16/19 17:27 Dose: 125 mls/hr Documented by: [id number] Admin: 01/16/19 09:27 Dose: 125 mls/hr Documented by: [id number] Famotidine 20 mg/ Syringe 5 mls @ 2.5 mls/min IV BID R[facility] Stop: 02/15/19 20:59 Last Admin: 01/17/19 08:56 Dose: 2.5 mls/min Documented by: [id number] Admin: 01/16/19 21:01 Dose: 2.5 mls/min Documented by: [id number] Miscellaneous (Order Awaiting Action) 1 ea N/A QS [facility] Stop: 02/15/19 00:00 Last Admin: 01/17/19 07:56 Dose: Not Given Documented by: [id number] Admin: 01/17/19 00:10 Dose: Not Given Documented by: [id number] Admin: 01/16/19 16:37 Dose: Not Given Documented by: [id number] Admin: 01/16/19 07:57 Dose: Not Given Documented by: [id number] Admin: 01/16/19 00:17 Dose: Not Given Documented by: [id number] Raspberry (Raspberry) 5 ml PO Q6 [facility] Stop: 01/30/19 00:00 Last Admin: 01/17/19 11:58 Dose: 5 ml Documented by: [id number] Admin: 01/17/19 05:48 Dose: 5 ml Documented by: [id number] Admin: 01/16/19 23:41 Dose: 5 ml Documented by: [id number] Admin: 01/16/19 17:45 Dose: 5 ml Documented by: [id number] Admin: 01/16/19 11:42 Dose: 5 ml Documented by: [id number] Admin: 01/16/19 05:59 Dose: 5 ml Documented by: [id number] Admin: 01/15/19 23:40 Dose: 5 ml Documented by: [id number] Vancomycin HCl (Vancomycin Hcl) 125 mg PO Q6 RENO Stop: 01/26/19 00:00 Last Admin: 01/17/19 11:57 Dose: 125 mg Documented by: [id number] Admin: 01/17/19 05:48 Dose: 125 mg Documented by: [id number] Admin: 01/16/19 23:41 Dose: 125 mg Documented by: [id number] Admin: 01/16/19 17:45 Dose: 125 mg Documented by: [id number] Admin: 01/16/19 11:42 Dose: 125 mg Documented by: [id number] Admin: 01/16/19 05:59 Dose: 125 mg Documented by: [id number] Admin: 01/15/19 23:40 Dose: 125 mg Documented by: [id number] Discontinued Medications Bisacodyl (Dulcolax) 20 mg PO TODAY@1700 [facility] Stop: 01/16/19 21:00 Last Admin: 01/16/19 17:44 Dose: 20 mg Documented by: [id number] Sodium Chloride (Nss 1000ml) 1,000 mls @ 999 mls/hr IV .Q1H1M ONE Stop: 01/15/19 16:11 Last Infusion: 01/15/19 16:31 Dose: 0 mls/hr Documented by: [id number] Admin: 01/15/19 15:29 Dose: 999 mls/hr Documented by: [id number] Acetaminophen (Ofirmev) 1,000 mg in 100 mls @ 400 mls/hr IV NOW STA Stop: 01/15/19 15:25 Last Infusion: 01/15/19 15:44 Dose: 0 mls/hr Documented by: [id number] Admin: 01/15/19 15:29 Dose: 400 mls/hr Documented by: [id number] Sodium Chloride (Nss 1000ml) 1,000 mls @ 125 mls/hr IV .Q8H RENO Stop: 02/14/19 18:44 Last Infusion: 01/15/19 21:37 Dose: 0 mls/hr Documented by: [id number] Admin: 01/15/19 19:15 Dose: 125 mls/hr Documented by: [id number] Sodium Chloride (Nss 1000ml) 1,000 mls @ 125 mls/hr IV .Q8H RENO Stop: 02/14/19 21:27 Last Infusion: 01/16/19 09:04 Dose: 0 mls/hr Documented by: [id number] Admin: 01/16/19 06:41 Dose: 125 mls/hr Documented by: [id number] Infusion: 01/16/19 06:40 Dose: 0 mls/hr Documented by: [id number] Admin: 01/15/19 22:14 Dose: 125 mls/hr Documented by: [id number] Ciprofloxacin (Cipro) 400 mg in 200 mls @ 100 mls/hr IV Q12H RENO; Protocol Stop: 01/25/19 21:59 Last Infusion: 01/16/19 01:45 Dose: 0 mls/hr Documented by: [id number] Admin: 01/15/19 23:40 Dose: 100 mls/hr Documented by: [id number] Metronidazole (Flagyl) 500 mg in 100 mls @ 100 mls/hr IV Q8H RENO; Protocol Stop: 01/25/19 21:59 Last Infusion: 01/15/19 23:41 Dose: 0 mls/hr Documented by: [id number] Admin: 01/15/19 22:14 Dose: 100 mls/hr Documented by: [id number] Ioversol (Optiray 320 100ml) 95 ml IV ONCE PRN PRN Reason: Interaction Checking Stop: 01/19/19 17:31 Last Admin: 01/15/19 17:33 Dose: 95 ml Documented by: [id number] Ondansetron HCl (Zofran) 4 mg IV NOW STA Stop: 01/15/19 15:12 Last Admin: 01/15/19 15:29 Dose: 4 mg Documented by: [id number] Polyethylene Glycol (Miralax) 119 gm PO 1700 ONE Stop: 01/16/19 17:01 Last Admin: 01/16/19 17:45 Dose: 119 gm Documented by: [id number] Polyethylene Glycol (Miralax) 119 gm PO 2100 ONE Stop: 01/16/19 21:01 Last Admin: 01/16/19 21:02 Dose: 119 gm Documented by: [id number] Raspberry (Raspberry) 5 ml PO Q6 RENO Stop: 01/30/19 00:00 Last Admin: 01/15/19 19:15 Dose: 5 ml Documented by: [id number] Simvastatin (Zocor) 20 mg PO HS RENO Stop: 02/14/19 21:27 Last Admin: 01/15/19 22:14 Dose: 20 mg Documented by: [id number] Vancomycin HCl (Vancomycin Hcl) 125 mg PO NOW STA Stop: 01/15/19 18:37 Last Admin: 01/15/19 19:15 Dose: 125 mg Documented by: [id number] Medical Decision Making Differential Diagnosis Differential diagnosis: Etiologies such as biliary colic, cholecystitis, hepatitis, perihepatitis, pancreatitis, cardiac disease, pancreatitis, gastritis, peptic ulcer disease, appendicitis, ovarian cyst, ovarian torsion, ectopic , pelvic inflammatory disease, cystitis, diverticulitis, mesenteric ischemia, inflammatory bowel disease, ileus, bowel obstruction, aortic pathology, shingles, as well as others were considered. Medical Records Attestation: I reviewed the patient's medical records. Home Medications Current Medication List: was personally reviewed by me Laboratory Data Attestation: I reviewed the patient's lab results. Result diagrams: 01/17/19 05:40 01/17/19 05:40 Lab Results 01/15/19 01/15/19 01/15/19 Range/Units 15:30 15:30 15:30 WBC 20.98 H (4.8-10.8) K/uL RBC 4.00 L (4.2-5.4) M/uL Hgb 11.6 L (12.0-16.0) g/dL Hct 34.3 L (37-47) % MCV 85.8 (80-100) fL MCH 29.0 (25-34) pg MCHC 33.8 (32-36) g/dL RDW Std Deviation 41.8 (36.4-46.3) fL RDW Coeff of Don 13.4 (11.5-14.5) % Plt Count 372 (130-400) K/uL MPV 9.2 (7.4-10.4) fL Immature Gran % (Auto) 0.5 % Neut % (Auto) 90.8 % Lymph % (Auto) 4.5 % [place] % (Auto) 4.1 % Eos % (Auto) 0.0 % Baso % (Auto) 0.1 % Immature Gran # (Auto) 0.11 H (0.00-0.02) K/uL Neut # (Auto) 19.05 H (1.4-6.5) K/uL Lymph # (Auto) 0.94 L (1.2-3.4) K/uL [place] # (Auto) 0.85 H (0.11-0.59) K/uL Eos # (Auto) 0.00 (0-0.5) K/uL Baso # (Auto) 0.03 (0-0.2) K/uL Sodium 139 (136-145) mmol/L Potassium 3.3 L (3.5-5.1) mmol/L Chloride 105 (98-107) mmol/L Carbon Dioxide 24 (21-32) mmol/L Anion Gap 10.0 (3-11) BUN 13 (7-18) mg/dl Creatinine 0.84 (0.6-1.2) mg/dl Est Cr Clr Drug Dosing 69.1 ml/min Est GFR ( Amer) 83.4 Est GFR (Non-Af Amer) 71.9 BUN/Creatinine Ratio 15.7 (10-20) Glucose 115 H (70-99) mg/dl POC Lactic Acid Marcel (0.90-1.70) mmol/L Calcium 8.7 (8.5-10.1) mg/dl Total Bilirubin 0.4 (0.2-1) mg/dl AST 14 L (15-37) U/L ALT 33 (12-78) U/L Alkaline Phosphatase 74 (45-117) U/L Troponin I < 0.015 (0-0.045) ng/ml Total Protein 7.5 (6.4-8.2) gm/dl Albumin 3.6 (3.4-5.0) gm/dl Globulin 3.9 (2.5-4.0) gm/dl Albumin/Globulin Ratio 0.9 (0.9-2) Lipase 74 (73-393) U/L Procalcitonin 0.13 (0-0.5) ng/ml 01/15/19 Range/Units 17:24 WBC (4.8-10.8) K/uL RBC (4.2-5.4) M/uL Hgb (12.0-16.0) g/dL Hct (37-47) % MCV (80-100) fL MCH (25-34) pg MCHC (32-36) g/dL RDW Std Deviation (36.4-46.3) fL RDW Coeff of Don (11.5-14.5) % Plt Count (130-400) K/uL MPV (7.4-10.4) fL Immature Gran % (Auto) % Neut % (Auto) % Lymph % (Auto) % [place] % (Auto) % Eos % (Auto) % Baso % (Auto) % Immature Gran # (Auto) (0.00-0.02) K/uL Neut # (Auto) (1.4-6.5) K/uL Lymph # (Auto) (1.2-3.4) K/uL [place] # (Auto) (0.11-0.59) K/uL Eos # (Auto) (0-0.5) K/uL Baso # (Auto) (0-0.2) K/uL Sodium (136-145) mmol/L Potassium (3.5-5.1) mmol/L Chloride (98-107) mmol/L Carbon Dioxide (21-32) mmol/L Anion Gap (3-11) BUN (7-18) mg/dl Creatinine (0.6-1.2) mg/dl Est Cr Clr Drug Dosing ml/min Est GFR ( Amer) Est GFR (Non-Af Amer) BUN/Creatinine Ratio (10-20) Glucose (70-99) mg/dl POC Lactic Acid Marcel 0.71 L (0.90-1.70) mmol/L Calcium (8.5-10.1) mg/dl Total Bilirubin (0.2-1) mg/dl AST (15-37) U/L ALT (12-78) U/L Alkaline Phosphatase (45-117) U/L Troponin I (0-0.045) ng/ml Total Protein (6.4-8.2) gm/dl Albumin (3.4-5.0) gm/dl Globulin (2.5-4.0) gm/dl Albumin/Globulin Ratio (0.9-2) Lipase (73-393) U/L Procalcitonin (0-0.5) ng/ml Imaging Data Radiologist's Impression: Radiology results as stated below per my review and the radiologist's interpretation: CT abd pelvis IV con only CLINICAL HISTORY: abd pain, bloody diarrhea COMPARISON STUDY: None. TECHNIQUE: The patient was scanned in a dynamic helical fashion during intravenous administration of 95 cc of Optiray 320. A dose lowering technique was utilized adhering to the principles of ALARA. CT DOSE: 715.29 mGycm FINDINGS: Lower chest: There are dependent atelectatic changes present. Liver: The contrast-enhanced liver is normal in size, contour, and attenuation. There is no intrahepatic biliary ductal dilatation. The hepatic veins and portal veins are patent. Gallbladder: Unremarkable. Spleen: Normal in size and attenuation. Pancreas: Unremarkable. Adrenal glands: Unremarkable. Kidneys: There is a 1 cm right renal cortical cyst. There is a right-sided extrarenal pelvis. Bowel: There are no transition zones indicate bowel obstruction. There is diffuse colonic wall thickening indicative of a pancolitis. There is no evidence of acute diverticulitis. The appendix appears normal. The terminal ileum is unremarkable in appearance. Peritoneum: There is no intraperitoneal free air or abdominal ascites. Vasculature: The abdominal aorta is normal in course and caliber. Adenopathy: None. Pelvic viscera: The bladder, and pelvic viscera are unremarkable. Skeletal structures: No destructive osseous lesions are seen. IMPRESSION: 1. No evidence of bowel obstruction. No evidence of free air 2. Normal appendix. No evidence of acute diverticulitis 3. Diffuse colonic wall thickening indicative of a pancolitis Electronically signed by: Artur England M.D. 01/15/2019 5:46 PM ECG Data Attestation: I personally reviewed and interpreted this ECG as follows: Indication: abdominal pain Rate (beats per minute): 105 Rhythm: sinus tachycardia Findings: + other (Normal axis, normal intervals); no PVC and no acute ischemic change Blood Pressure Blood Pressure Findings: Elevated blood pressure Blood Pressure Disposition: Referred to patients primary care provider BRANDT Narrative Pt here with bloody diarrhea, abdominal and fevers without any prior significant GI history. Given recent symptoms and outside evaluation, records were obtained from another facility regarding her first ER visit. Pt's WBC count here higher than last week. CT here reveals goodrich colitis. VS stable here. Stools cultures ordered and c.diff ordered. Given my increased concern for C.diff, oral vancomycin ordered. Discussed with hospitalist for additional evaluation. We also discussed additional antibiotics, they will evaluate and add after their evaluation. Impression & Plan Pancolitis, Elevated blood pressure reading, Lower gastrointestinal hemorrhage, Nausea Discharge Plan Visit Data *Final* Discharge Date/Time: 01/15/19 21:13 Chief Complaint: GI Assessment Stated Complaint: FEVER,DIARRHEA,STOMACH PAIN,BLOODY STOOLS ED Provider: Sailaja Goodwin Discharge Problem: Pancolitis, Elevated blood pressure reading, Lower gastrointestinal hemorrhage, Nausea Patient Disposition: Admitted As Inpatient Discharge Instructions Interventions: ED Discharge Assessment Last Done: 01/15/19 21:13 The scribe's documentation has been prepared under my direction and personally reviewed by me in its entirety. I confirm that the note above accurately reflects all work, treatment, procedures, and medical decision making performed by me.
[2019-01-15] MEDS ORDERED: IOVERSOL 100ml IV PRN (17:32)
--- NOTE | 2019-01-15 17:48 | CT Scan Report ---
CT abd pelvis IV con only CLINICAL HISTORY: abd pain, bloody diarrhea COMPARISON STUDY: None. TECHNIQUE: The patient was scanned in a dynamic helical fashion during intravenous administration of 95 cc of Optiray 320. A dose lowering technique was utilized adhering to the principles of ALARA. CT DOSE: 715.29 mGycm FINDINGS: Lower chest: There are dependent atelectatic changes present. Liver: The contrast-enhanced liver is normal in size, contour, and attenuation. There is no intrahepa tic biliary ductal dilatation. The hepatic veins and portal veins are patent. Gallbladder: Unremarkable. Spleen: Normal in size and attenuation. Pancreas: Unremarkable. Adrenal glands: Unremarkable. Kidneys: There is a 1 cm right renal cortical cyst. There is a right-sided extrarenal pelvis. Bowel: There are no transition zones indicate bowel obstruction. There is diffuse colonic wall thicke tila indicative of a pancolitis. There is no evidence of acute diverticulitis. The appendix appears n ormal. The terminal ileum is unremarkable in appearance. Peritoneum: There is no intraperitoneal free air or abdominal ascites. Vasculature: The abdominal aorta is normal in course and caliber. Adenopathy: None. Pelvic viscera: The bladder, and pelvic viscera are unremarkable. Skeletal structures: No destructive osseous lesions are seen. IMPRESSION: 1. No evidence of bowel obstruction. No evidence of free air 2. Normal appendix. No evidence of acute diverticulitis 3. Diffuse colonic wall thickening indicative of a pancolitis Electronically signed by: Artur England M.D. 01/15/2019 5:46 PM
[2019-01-15] MEDS ORDERED: VANCOMYCIN HCL 125 MG/2.5ML SOLN PO STA (18:36)
[2019-01-15] MEDS ORDERED: SODIUM CHLORIDE 0.9% 1000ML 1,000 ML IV SCH (18:45)
--- NOTE | 2019-01-15 20:02 | History & Physical Report ---
Date of Service January 15, 2019 Assessment & Plan (1) Pancolitis: Ms. Rosado is a 68yo female with a PMHx of Factor V Leiden, HLD, GERD, nonallergic rhinitis and chronic constipation who presents with recurrent bloody diarrhea and lower abdominal pain. Pancolitis -Pt with abd pain, bloody diarrhea with mucus, subjective fevers and chills and increased WBC >20,000 currently -Received 5 days of Flagyl and cipro Rx after colitis shown on CT in [place] circa Jan 05 -Improved symptoms for the last week; symptoms resumed night before admission -repeat CT 01/15 showing diffuse colonic wall thickening indicative of a pancolitis withOUT evidence of diverticulitis. -will restart on cipro and flagyl -will continue on NSS@125 for fluid repletion given diarrhea -will order stool culture, ova and parasite, Giardia Ag, WBC stool smear for possible infectious cause. EHEC, Shigella strong possible causes. -follow c. diff results ordered by ED; pt with Hx of clindamycin use in October for sinusitis. Can start vancomycin PO rx based on positive results. Of note, pt given one dose by the ED. -will consult GI -will continue to trend CBC, CMP for WBC, electrolyte abnormalities Hx of HLD -continue home simvastatin 20mg PO qHS Hx of Nonallergic rhinitis -continue home azelastine, Flonase Hx of Factor V Lieden -continue home baby aspirin 81mg PO daily FEN/GI: NPO for bowel rest; NSS@125 CODE STATUS: Full DVT Proph: Lovenox and SCDs given Hx of Factor V Leiden Dispo: Med/Surg History of Present Illness Primary Care Provider: Cl Meier DO Ms. Rosado is a 68yo female with a PMHx of Factor V Leiden, HLD, GERD, nonallergic rhinitis and chronic constipation who presents with recurrent bloody diarrhea and lower abdominal pain. Pt states that the night before Jan 05 she was out eating at a restaurant in [place] and had some hamburger meat. Also took some miralax that night for chronic constipation and developed bloody diarrhea with crampy abd pain the next morning. She presented to the ED in [place] and a CT scan there showed colitis. She was started on a 7 day course of cipro and Flagyl but ended up taking it for 5 days after following up with her PCP and heaving seemingly resolved symptoms. She was symptom free for the last week before developing fevers, chills, night sweats with the crampy abdominal pain and bloody diarrhea once more. Stool has bright red blood , watery with mucus.States she also has associated nausea without vomitting. Of note pt states she was also treated for sinusitis in October with Clindamycin. Has a Hx of treated c.diff from 20years ago. PMHx: Factor V Leiden, HLD, Constipation, GERD, nonallergic rhinitis PSH: Hysterectomy, "vein treatments" Fam Hx: Mother: Alzheimer's, Father: Emphysema, COPD, Sister and Brother: Hx of [place] Meds: Simvastatin, Flonase, Azelastine, baby aspirin ALLERGIES: PENICILLIN, SULFA DRUGS SH: Lives at home with ; spends half the year in [place]. Home here is 3 levels but the master bedroom is on first floor, few steps to enter the house. Currently retired, previously worked in [employer]. ED Course: CT showing pancolitis, WBC=20.98, given on dose of PO Vanc 125mg, NSS. Allergies Allergy/AdvReac Type Severity Reaction Status Date / Time Penicillins AdvReac Intermediate Rash Unverified 01/15/19 15:15 Sulfa (Sulfonamide AdvReac Intermediate Rash Unverified 01/15/19 15:15 Antibiotics) Home Medications Home Medications Medication Instructions Recorded Confirmed Type acetaminophen [Tylenol] 650 mg PO Q6H PRN 01/15/19 01/15/19 History azelastine 1 spray INTRANASAL DAILY 01/15/19 01/15/19 History fluticasone propionate [Flonase 1 spray INTRANASAL DAILY 01/15/19 01/15/19 History Allergy Relief] Past Med/Surg History Medical History Sinus complaint (Acute) Gastritis Seasonal allergies Family History Sister Heart disease Brother Heart disease Social History Preferred Language: Mohawk Communication Ability: Effective 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 Beliefs That Will Affect Care: None marital status: Current Living Situation: Spouse current occupational status: retired Other Information That Helps Us Care for You: No Feels Safe at Home: Yes Safety Concerns: Feels Safe At This Time Smoking Status: Former smoker Hx Alcohol Use: No Hx Substance Use: No Review of Systems Constitutional: + fever, + chills, + sweats, + fatigue and + anorexia Eyes: no worsening vision Ear, Nose, Mouth, Throat: + nasal congestion and + post nasal drip; no sore throat Respiratory: no cough and no dyspnea Cardiovascular: no chest pain, no palpitations, no lightheadedness and no lanny a Gastrointestinal: + abdominal pain, + belching, + nausea, + constipation, + diarrhea/loose stools and + blood in stools; no vomiting and no dysphagia Genitourinary: no dysuria and no hematuria Musculoskeletal: + muscle weakness Integumentary: no rash Neurologic: + headache(s); no tingling, no numbness and no confusion Physical Exam Constitutional: WD/WN, vitals as above Eyes: PERRL, conjunctivae normal, anicteric sclerae ENMT: external ear and nose normal, oropharynx normal Neck: normal visual inspection Respiratory: normal respiratory effort, lungs clear to auscultation Cardiovascular: RRR, no murmur, no edema Heart Sounds: normal S1 and normal S2 Gastrointestinal (Abdomen): Inspection/Auscultation: abdomen normal to inspection and normal bowel sounds; abdomen not distended Percussion/Palpation: + abdomen tender (in lower abdomen bilaterally) and abdomen soft; no guarding and no hepatosplenomegaly Musculoskeletal: no cyanosis or clubbing, extremities motor strength 5/5 Skin: no rashes, warm and dry Neurologic: PERRL, EOMI, accommodation nl, no face palsy, no dysarthria Results & Data Vital Signs (Past 12 Hours) Vital Signs Temp Pulse Resp BP Pulse Ox 01/15/19 17:01 107 H 28 H 01/15/19 16:30 94 H 18 94 01/15/19 16:00 94 H 14 95 01/15/19 15:30 103 H 14 01/15/19 15:29 103 H 17 01/15/19 14:07 37.7 C H 117 H 20 153/78 H 94 Laboratory Results Laboratory Results - last 24 hr 01/15/19 01/15/19 01/15/19 15:30 15:30 15:30 WBC 20.98 H RBC 4.00 L Hgb 11.6 L Hct 34.3 L MCV 85.8 MCH 29.0 MCHC 33.8 RDW Std Deviation 41.8 RDW Coeff of Don 13.4 Plt Count 372 MPV 9.2 Immature Gran % (Auto) 0.5 Neut % (Auto) 90.8 Lymph % (Auto) 4.5 [place] % (Auto) 4.1 Eos % (Auto) 0.0 Baso % (Auto) 0.1 Immature Gran # (Auto) 0.11 H Neut # (Auto) 19.05 H Lymph # (Auto) 0.94 L [place] # (Auto) 0.85 H Eos # (Auto) 0.00 Baso # (Auto) 0.03 Sodium 139 Potassium 3.3 L Chloride 105 Carbon Dioxide 24 Anion Gap 10.0 BUN 13 Creatinine 0.84 Est Cr Clr Drug Dosing 69.1 Est GFR ( Amer) 83.4 Est GFR (Non-Af Amer) 71.9 BUN/Creatinine Ratio 15.7 Glucose 115 H POC Lactic Acid Marcel Calcium 8.7 Total Bilirubin 0.4 AST 14 L ALT 33 Alkaline Phosphatase 74 Troponin I < 0.015 Total Protein 7.5 Albumin 3.6 Globulin 3.9 Albumin/Globulin Ratio 0.9 Lipase 74 Procalcitonin 0.13 01/15/19 17:24 WBC RBC Hgb Hct MCV MCH MCHC RDW Std Deviation RDW Coeff of Don Plt Count MPV Immature Gran % (Auto) Neut % (Auto) Lymph % (Auto) [place] % (Auto) Eos % (Auto) Baso % (Auto) Immature Gran # (Auto) Neut # (Auto) Lymph # (Auto) [place] # (Auto) Eos # (Auto) Baso # (Auto) Sodium Potassium Chloride Carbon Dioxide Anion Gap BUN Creatinine Est Cr Clr Drug Dosing Est GFR ( Amer) Est GFR (Non-Af Amer) BUN/Creatinine Ratio Glucose POC Lactic Acid Marcel 0.71 L Calcium Total Bilirubin AST ALT Alkaline Phosphatase Troponin I Total Protein Albumin Globulin Albumin/Globulin Ratio Lipase Procalcitonin Medications Administered Home Medications acetaminophen [Tylenol] 650 mg PO Q6H PRN 01/15/19 [History Confirmed 01/15/19] azelastine 1 spray INTRANASAL DAILY 01/15/19 [History Confirmed 01/15/19] fluticasone propionate [Flonase Allergy Relief] 1 spray INTRANASAL DAILY 01/15/19 [History Confirmed 01/15/19] Active Medications Sodium Chloride (Nss 1000ml) 1,000 mls @ 125 mls/hr IV .Q8H RENO Stop: 02/14/19 18:44 Last Admin: 01/15/19 19:15 Dose: 125 mls/hr Documented by: Ioversol (Optiray 320 100ml) 95 ml IV ONCE PRN PRN Reason: Interaction Checking Stop: 01/19/19 17:31 Last Admin: 01/15/19 17:33 Dose: 95 ml Documented by: Raspberry (Raspberry) 5 ml PO Q6 RENO Stop: 01/30/19 00:00 Last Admin: 01/15/19 19:15 Dose: 5 ml Documented by: Supervising Physician Co-Signing Physician Notes Patient was seen and examined by me personally. I reviewed the chart, the orders and discussed the case in detail with Dr. Priya Christy MD . I read this H&P and agree with its contents to entirety. PG Care Time/CCT Total # of Minutes Spent Total Time Spent with Patient: Total time spent is greater than 50% in coordination of care (as documented) at patient's floor/unit and/or counseling patient: Resident Activity Tracking Resident Involvement: Resident Care Provided Care Provided: Adult Hospital Medicine
[2019-01-15] MEDS ORDERED: SIMVASTATIN 20 MG TAB PO SCH (21:28)
[2019-01-15] MEDS ORDERED: metroNIDAZOLE 500 MG/100 ML BAG IV SCH (22:00)
[2019-01-15] MEDS ORDERED: CIPROFLOXACIN 400 MG/200 ML BAG IV SCH (22:00)
[2019-01-15] MEDS: SODIUM CHLORIDE 0.9% 1000ML 1,000 ML IV SCH (22:14)
[2019-01-15] MEDS: ENOXAPARIN INJ 40 MG/0.4 ML SYR SQ SCH (22:44)
[2019-01-15 22:55] LABS: Cdiff Antigen Positive; Cdiff Toxin A+B Negative Cdiff Toxin (Negative)
[2019-01-15] MEDS: VANCOMYCIN HCL 125 MG/2.5ML SOLN PO SCH (23:40)
[2019-01-15] MEDS: RASPBERRY SYRUP 5 ML UDP PO SCH (23:40)
[2019-01-16] MEDS ORDERED: RASPBERRY SYRUP 5 ML UDP PO SCH
[2019-01-16] MEDS: VANCOMYCIN HCL 125 MG/2.5ML SOLN PO SCH ×4 (05:59→23:41)
[2019-01-16] MEDS: RASPBERRY SYRUP 5 ML UDP PO SCH ×4 (05:59→23:41)
[2019-01-16] MEDS: ACETAMINOPHEN 325 MG TAB PO PRN (06:02)
[2019-01-16 06:15] LABS: Basophils # (auto) 0.03 K/uL (0-0.2); Basophils % (auto) 0.2 %; Eosinophils # (auto) 0.01 K/uL (0-0.5); Eosinophils % (auto) 0.1 %; Hematocrit (blood only) 31.2 % (37-47); Hemoglobin 10.3 g/dL (12.0-16.0); Immature Granulocytes # (auto) 0.04 K/uL (0.00-0.02); Immature Granulocytes % (auto) 0.3 %; Lymphocytes # (auto) 1.38 K/uL (1.2-3.4); Lymphocytes % (auto) 10.9 %; Mean Corpuscular Volume 86.4 fL (80-100); Mean Platelet Volume 8.9 fL (7.4-10.4); Monocytes % (auto) 7.1 %; Neutrophils # (auto) 10.29 K/uL (1.4-6.5); Neutrophils % (auto) 81.4 %; Platelet Count 308 K/uL (130-400); RDW Coefficient of Variation 13.4 % (11.5-14.5); Red Blood Count 3.61 M/uL (4.2-5.4); White Blood Count 12.65 K/uL (4.8-10.8)
[2019-01-16] MEDS: SODIUM CHLORIDE 0.9% 1000ML 1,000 ML IV SCH (06:41)
[2019-01-16 06:53] LABS: Albumin Globulin Ratio 0.8 (0.9-2); Albumin Level 2.8 gm/dl (3.4-5.0); Bilirubin,Total 0.3 mg/dl (0.2-1); Calcium 8.2 mg/dl (8.5-10.1); Creatinine Clr Calc Pharmacy 67.3 ml/min; Est GFR (African American) 87.1; Est GFR (Non-African American) 75.2; Globulin 3.6 gm/dl (2.5-4.0); Potassium 3.3 mmol/L (3.5-5.1); Total Protein 6.4 gm/dl (6.4-8.2)
[2019-01-16] MEDS: ASPIRIN 81 MG ECTAB PO SCH (07:56)
[2019-01-16] MEDS: FLUTICASONE PROPIONATE NA SPR 16 GM BTL SCH (07:57)
--- NOTE | 2019-01-16 08:53 | Family Medicine Progress Note ---
Date of Service January 16, 2019 Assessment & Plan (1) Pancolitis: - ED CT abd showed diffuse inflammation of colon without obvious source - 2 separate antibiotic exposures in past 6 months - was recently on Cipofloxacin and metronidazole earlier this month for similar presentation of symptoms - C. Diff gene positive, toxin negative - presumptively treating for infection with contact precautions and Vanc 125 PO Q6 - awaiting stool cultures for salmonella, campylobacter, EHEC, ova & parasites - GI on board: - plan to cscope + EGD tomorrow to rule out IBD - NPO after midnight, clear fluids for now - bowel regimen ordered for cscope - last cscope in 2012 was clean Present on Admission?: Yes (2) Chronic GERD: - IV famotidine (3) Factor V Leiden: - lovenox DVT ppx Supervising Physician Co-Signing Physician Notes Attending attestation Pt seen and examined in concert with Dr. Lama. In agreement with the documented findings as noted in the resident documentation with any exceptions or additions as noted here. Pancolitis w/ +ve C diff gene - gastroenterology consultation - continue PO vancomycin. EGD/colonoscopy tomorrow. Follow up stool studies. Chronic GERD - continue IV H2 therapy Else see resident documentation as noted. Subjective Pleasant 68 yo F who was seen in the ED yesterday for abdominal cramping and multiple days of mucus-y diarrhea with blood. Pt attests to abdominal cramping and pain that is relieved with defecation and is worse after eating food. Denies chest pain, shortness of breath, blurring of vision, headache. Feels nauseous at rest, no episodes of emesis. Review of Systems Constitutional: no fever and no chills Respiratory: no cough, no dyspnea and no pain on inspiration Cardiovascular: no chest pain, no dyspnea, no dyspnea on exertion and no palpitations Gastrointestinal: + abdominal pain, + bloating, + nausea, + cramping, + diarrhea/loose stools and + blood in stools; no excessive flatulence Physical Exam Constitutional: well developed, well nourished, + thin, cooperative and comfortable; no acute distress Respiratory: normal respiratory effort and + respiratory distress; no cough Auscultation: lungs clear to auscultation bilaterally; no crackles, no rhonchi and no wheezes Cardiovascular: RRR, no murmur, no edema Gastrointestinal (Abdomen): Inspection/Auscultation: abdomen normal to inspection and + hyperactive bowel sounds; abdomen not distended and no significant pannus Percussion/Palpation: + abdomen tender (generalized tenderness, increased in lower quadrants) and abdomen soft; no guarding Results & Data Vital Signs (Past 12 Hours) Vital Signs Temp Pulse Pulse Resp BP BP Pulse Ox 01/16/19 06:57 37.1 C 83 20 122/71 97 01/15/19 21:20 37.7 C H 97 H 24 154/76 H 98 01/15/19 21:08 64 18 169/80 H 95 Laboratory Results WBC 12.65 K/uL (4.8-10.8) H 01/16/19 05:52 RBC 3.61 M/uL (4.2-5.4) L 01/16/19 05:52 Hgb 10.3 g/dL (12.0-16.0) L 01/16/19 05:52 Hct 31.2 % (37-47) L 01/16/19 05:52 MCV 86.4 fL (80-100) 01/16/19 05:52 MCH 28.5 pg (25-34) 01/16/19 05:52 MCHC 33.0 g/dL (32-36) 01/16/19 05:52 RDW Std Deviation 43.0 fL (36.4-46.3) 01/16/19 05:52 RDW Coeff of Don 13.4 % (11.5-14.5) 01/16/19 05:52 Plt Count 308 K/uL (130-400) 01/16/19 05:52 MPV 8.9 fL (7.4-10.4) 01/16/19 05:52 Immature Gran % (Auto) 0.3 % 01/16/19 05:52 Neut % (Auto) 81.4 % 01/16/19 05:52 Lymph % (Auto) 10.9 % 01/16/19 05:52 [place] % (Auto) 7.1 % 01/16/19 05:52 Eos % (Auto) 0.1 % 01/16/19 05:52 Baso % (Auto) 0.2 % 01/16/19 05:52 Immature Gran # (Auto) 0.04 K/uL (0.00-0.02) H 01/16/19 05:52 Neut # (Auto) 10.29 K/uL (1.4-6.5) H 01/16/19 05:52 Lymph # (Auto) 1.38 K/uL (1.2-3.4) 01/16/19 05:52 [place] # (Auto) 0.90 K/uL (0.11-0.59) H 01/16/19 05:52 Eos # (Auto) 0.01 K/uL (0-0.5) 01/16/19 05:52 Baso # (Auto) 0.03 K/uL (0-0.2) 01/16/19 05:52 Sodium 141 mmol/L (136-145) 01/16/19 05:52 Potassium 3.3 mmol/L (3.5-5.1) L 01/16/19 05:52 Chloride 110 mmol/L (98-107) H 01/16/19 05:52 Carbon Dioxide 25 mmol/L (21-32) 01/16/19 05:52 Anion Gap 6.0 (3-11) 01/16/19 05:52 BUN 8 mg/dl (7-18) D 01/16/19 05:52 Creatinine 0.81 mg/dl (0.6-1.2) 01/16/19 05:52 Est Cr Clr Drug Dosing 67.3 ml/min 01/16/19 05:52 Est GFR ( Amer) 87.1 01/16/19 05:52 Est GFR (Non-Af Amer) 75.2 01/16/19 05:52 BUN/Creatinine Ratio 10.0 (10-20) 01/16/19 05:52 Glucose 115 mg/dl (70-99) H 01/16/19 05:52 POC Lactic Acid Marcel 0.71 mmol/L (0.90-1.70) L 01/15/19 17:24 Calcium 8.2 mg/dl (8.5-10.1) L 01/16/19 05:52 Total Bilirubin 0.3 mg/dl (0.2-1) 01/16/19 05:52 AST 11 U/L (15-37) L 01/16/19 05:52 ALT 25 U/L (12-78) 01/16/19 05:52 Alkaline Phosphatase 64 U/L (45-117) 01/16/19 05:52 Troponin I < 0.015 ng/ml (0-0.045) 01/15/19 15:30 Total Protein 6.4 gm/dl (6.4-8.2) 01/16/19 05:52 Albumin 2.8 gm/dl (3.4-5.0) L 01/16/19 05:52 Globulin 3.6 gm/dl (2.5-4.0) 01/16/19 05:52 Albumin/Globulin Ratio 0.8 (0.9-2) L 01/16/19 05:52 Lipase 74 U/L (73-393) 01/15/19 15:30 Procalcitonin 0.13 ng/ml (0-0.5) 01/15/19 15:30 Stl C. diff Tox B Gene Positive Cdiff Gene (Neg) H 01/15/19 21:00 Stl C.difficile Tox A&B Negative Cdiff Toxin (Negative) 01/15/19 21:00 Hepatitis C Ab Screen Neg (Neg) 01/16/19 05:52 PG Care Time/CCT Total # of Minutes Spent Total Time Spent with Patient: Total time spent is greater than 50% in coordination of care (as documented) at patient's floor/unit and/or counseling patient: Resident Activity Tracking Resident Involvement: Resident Care Provided Care Provided: Adult Hospital Medicine
[2019-01-16] MEDS: NSS + 20MEQ KCL 20 MEQ/1,000 ML BAG IV SCH ×2 (09:27→17:43)
--- NOTE | 2019-01-16 10:50 | Gastrointestinal Consultation ---
Date of Consultation January 16, 2019 Assessment & Plan (1) Pancolitis: (2) Epigastric discomfort: (3) Chronic GERD: Pt is a 68 y/o female seen for abd cramping, loose bloody stools w mucus. Hx of Cdiff infection, in last 6 months had 2 rounds of antibx exposure. She tested Cdiff gene positive, toxin negative. Stool cx pending. CT abd/pelvis w signs of pancolitis. She denies hx of IBD, colorectal ca. She was also c/o epigastric discomfort, heartburn. - CL diet today, NPO after midnight - Will give bowel prep for colonoscopy eval tomorrow - Dicyclomine 10mg bid prn abd cramping - F/u on stool cx result - Monitor H/H - Start Famotidine 20mg IV BID - Will plan also for EGD eval tomorrow Supervising Physician Co-Signing Physician Notes I performed a history and physical examination of the patient, including specifically on physical exam - soft, nontender abdomen. I have discussed the patient's management with Carmen. Please refer to the nurse practitioner's note for the documented findings and plan of care. 68 yrs old female presented with recurrent colitis despite recent ABx therapy. Plan: EGD and colonoscopy tomorrow to r/o IBD. History of Present Illness Reason for Consultation: Pancolitis Requesting Physician: Dr. Osmel Sauer Attending Physician: Dr. Clara Sevilla History of Present Illness Pt is a 68 y/o female w hx of Factor V Leiden, who presented yesterday w c/o lower abd cramping, bloody diarrhea w mucus, fevers. She notes symptoms started 01/05 after eating well cooked hamburger while she's in [place]. She went to ED in [place] and had CT scan done - told she had inflammation in colon and was given a course of Cipro/Flagyl antibx. She said symptoms subsided for a while but was getting nauseous w the antibx thus PCP in [place] told her to stop. 2 days ago symptoms started again. She had hx of Cdiff. Did receive 2 rounds of antibx in August and November for tooth ache and sinusitis. CT abd/pelvis on admission showed signs of pancolitis w/o obstruction. Stool test on admission positive for Cdiff gene but negative toxin. Given her diarrhea symptoms and pancolitis, she was started on Vancomycin. Along w symptoms above pt had c/o epigastric discomfort, bloating and also indigestion, heartburn symptom. She had prior endoscopies evaluation - including Nguyen pH study and perhaps also EGD for upper GI issues. She cannot remember when these were done. She was told she may have acid reflux and started on Ranitidine which seems to make symptoms worse. She was able to recall having colonoscopies in 2002, 2012 - normal per her report w/o hx of IBD, colorectal ca or polyps. She denies NSAIDs, tobacco, ETOH abuse. Allergies Allergy/AdvReac Type Severity Reaction Status Date / Time Penicillins AdvReac Intermediate Rash Unverified 01/15/19 15:15 Sulfa (Sulfonamide AdvReac Intermediate Rash Unverified 01/15/19 15:15 Antibiotics) Home Medications Home Medications Medication Instructions Recorded Confirmed Type acetaminophen [Tylenol] 650 mg PO Q6H PRN 01/15/19 01/15/19 History azelastine 1 spray INTRANASAL DAILY 01/15/19 01/15/19 History fluticasone propionate [Flonase 1 spray INTRANASAL DAILY 01/15/19 01/15/19 History Allergy Relief] Patient History Medical History Sinus complaint (Acute) Gastritis Seasonal allergies Family History Sister Heart disease Brother Heart disease Social History Preferred Language: [place] Communication Ability: Effective 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 Beliefs That Will Affect Care: None marital status: Current Living Situation: Spouse current occupational status: retired Other Information That Helps Us Care for You: No Feels Safe at Home: Yes Safety Concerns: Feels Safe At This Time Smoking Status: Former smoker Hx Alcohol Use: No Hx Substance Use: No Review of Systems Review of Systems: All systems reviewed & are unremarkable except as noted in HPI & below Physical Exam Constitutional: WD/WN, vitals as above well groomed, cooperative and comfortable Eyes: PERRL, conjunctivae normal, anicteric sclerae ENMT: external ear and nose normal, oropharynx normal Respiratory: normal respiratory effort, lungs clear to auscultation Cardiovascular: RRR, no murmur, no edema Gastrointestinal (Abdomen): Percussion/Palpation: + abdomen tender (across lower abd ) and abdomen soft Skin: no rashes, warm and dry no jaundice Psychiatric: A+Ox3, euthymic affect Lymphatic: no lymphedema Results & Data Vital Signs (Past 12 Hours) Vital Signs Temp Pulse Resp BP Pulse Ox 01/16/19 06:57 37.1 C 83 20 122/71 97
[2019-01-16] MEDS ORDERED: DICYCLOMINE HCL 10 MG CAP PO PRN (11:01)
[2019-01-16] MEDS ORDERED: POLYETHYLENE GLYCOL 3350 238 GM BTL PO ONE ×2 (17:00→21:00)
[2019-01-16] MEDS ORDERED: BISACODYL 5 MG TABEC PO SCH (17:00)
[2019-01-16] MEDS ORDERED: FAMOTIDINE 20MG/5ML IV PUSH IV SCH (21:00)
[2019-01-16] MEDS: FAMOTIDINE 20 MG in SYRINGE 3 ML IV SCH (21:01)
[2019-01-16] MEDS: ENOXAPARIN INJ 40 MG/0.4 ML SYR SQ SCH (21:02)
[2019-01-17] MEDS: NSS + 20MEQ KCL 20 MEQ/1,000 ML BAG IV SCH ×3 (02:13→17:19)
[2019-01-17] MEDS: RASPBERRY SYRUP 5 ML UDP PO SCH ×3 (05:48→17:20)
[2019-01-17] MEDS: VANCOMYCIN HCL 125 MG/2.5ML SOLN PO SCH ×3 (05:48→17:20)
[2019-01-17 06:06] LABS: Basophils # (auto) 0.03 K/uL (0-0.2); Basophils % (auto) 0.4 %; Eosinophils # (auto) 0.19 K/uL (0-0.5); Eosinophils % (auto) 2.6 %; Hematocrit (blood only) 26.5 % (37-47); Immature Granulocytes # (auto) 0.02 K/uL (0.00-0.02); Immature Granulocytes % (auto) 0.3 %; Lymphocytes # (auto) 1.57 K/uL (1.2-3.4); Lymphocytes % (auto) 21.8 %; Mean Corpuscular Volume 86.3 fL (80-100); Mean Platelet Volume 9.1 fL (7.4-10.4); Monocytes # (auto) 0.54 K/uL (0.11-0.59); Monocytes % (auto) 7.5 %; Neutrophils # (auto) 4.84 K/uL (1.4-6.5); Neutrophils % (auto) 67.4 %; Platelet Count 279 K/uL (130-400); RDW Coefficient of Variation 13.4 % (11.5-14.5); RDW Standard Deviation 42.3 fL (36.4-46.3); Red Blood Count 3.07 M/uL (4.2-5.4); White Blood Count 7.19 K/uL (4.8-10.8)
[2019-01-17 06:39] LABS: Albumin Level 2.8 gm/dl (3.4-5.0); BUN Creatinine Ratio 7.8 (10-20); Calcium 7.9 mg/dl (8.5-10.1); Creatinine Clr Calc Pharmacy 86.5 ml/min; Est GFR (African American) 107.6; Est GFR (Non-African American) 92.8; Potassium 3.5 mmol/L (3.5-5.1)
[2019-01-17 06:42] LABS: Albumin Globulin Ratio 0.9 (0.9-2); Bilirubin,Total 0.3 mg/dl (0.2-1); Globulin 3.2 gm/dl (2.5-4.0)
[2019-01-17] MEDS: FLUTICASONE PROPIONATE NA SPR 16 GM BTL SCH (07:55)
[2019-01-17] MEDS: ASPIRIN 81 MG ECTAB PO SCH (07:55)
--- NOTE | 2019-01-17 08:00 | Family Medicine Progress Note ---
Date of Service January 17, 2019 Assessment & Plan (1) Pancolitis: - ED CT abd showed diffuse inflammation of colon without obvious source - 2 separate antibiotic exposures in past 6 months - was recently on Cipofloxacin and metronidazole earlier this month for similar presentation of symptoms - C. Diff gene positive, toxin negative - presumptively treating for infection with contact precautions and Vanc 125 PO Q6 - awaiting stool cultures for salmonella, campylobacter, EHEC, ova & parasites - GI on board: - plan to cscope + EGD today to rule out IBD - NPO after midnight, clear fluids for now - bowel regimen ordered for cscope - last cscope in 2012 was clean (2) Chronic GERD: - IV famotidine (3) Factor V Leiden: - lovenox DVT ppx - held last night before procedures Supervising Physician Co-Signing Physician Notes I saw the patient independent of the resident physician and confirmed the history and physical exam. I agree with the impression and plan as noted above. Patient for panendoscopy this afternoon; further recommendations will depend on the results of this. We will continue current care for now; will discuss with gastroenterology whether we should continue empiric vancomycin. Subjective Feeling well this morning. Had multiple episodes of bloody bowel movements last night after taking the miralax solution for colonoscopy prep. Not sure if dicyclomine helped her stomach cramping or not. Was supposed to go for EGD and colonoscopy at 8:30 this morning. Review of Systems Constitutional: no fever, no body aches and no weakness Respiratory: no cough, no dyspnea and no pain on inspiration Cardiovascular: no chest pain, no palpitations and no edema Gastrointestinal: + abdominal pain, + constipation, + diarrhea/loose stools, + constant urge to pass stools and + blood in stools; no nausea and no vomiting Physical Exam Constitutional: WD/WN, vitals as above + thin, cooperative and comfortable Respiratory: normal respiratory effort, lungs clear to auscultation Cardiovascular: RRR, no murmur, no edema Gastrointestinal (Abdomen): Inspection/Auscultation: abdomen normal to inspection; abdomen not distended and no abdominal edema Percussion/Palpation: + abdomen tender and abdomen soft; no guarding and abdomen not rigid Results & Data Vital Signs (Past 12 Hours) Vital Signs Temp Pulse Resp BP Pulse Ox 01/17/19 07:25 36.9 C 87 16 133/71 98 09/12/19 22:43 36.9 C 70 18 148/76 H 100 Laboratory Results WBC 7.19 K/uL (4.8-10.8) 01/17/19 05:40 RBC 3.07 M/uL (4.2-5.4) L 01/17/19 05:40 Hgb 9.0 g/dL (12.0-16.0) L 01/17/19 05:40 Hct 26.5 % (37-47) L 01/17/19 05:40 MCV 86.3 fL (80-100) 01/17/19 05:40 MCH 29.3 pg (25-34) 01/17/19 05:40 MCHC 34.0 g/dL (32-36) 01/17/19 05:40 RDW Std Deviation 42.3 fL (36.4-46.3) 01/17/19 05:40 RDW Coeff of Don 13.4 % (11.5-14.5) 01/17/19 05:40 Plt Count 279 K/uL (130-400) 01/17/19 05:40 MPV 9.1 fL (7.4-10.4) 01/17/19 05:40 Immature Gran % (Auto) 0.3 % 01/17/19 05:40 Neut % (Auto) 67.4 % 01/17/19 05:40 Lymph % (Auto) 21.8 % 01/17/19 05:40 [place] % (Auto) 7.5 % 01/17/19 05:40 Eos % (Auto) 2.6 % 01/17/19 05:40 Baso % (Auto) 0.4 % 01/17/19 05:40 Immature Gran # (Auto) 0.02 K/uL (0.00-0.02) 01/17/19 05:40 Neut # (Auto) 4.84 K/uL (1.4-6.5) 01/17/19 05:40 Lymph # (Auto) 1.57 K/uL (1.2-3.4) 01/17/19 05:40 [place] # (Auto) 0.54 K/uL (0.11-0.59) 01/17/19 05:40 Eos # (Auto) 0.19 K/uL (0-0.5) 01/17/19 05:40 Baso # (Auto) 0.03 K/uL (0-0.2) 01/17/19 05:40 Sodium 143 mmol/L (136-145) 01/17/19 05:40 Potassium 3.5 mmol/L (3.5-5.1) 01/17/19 05:40 Chloride 115 mmol/L (98-107) H 01/17/19 05:40 Carbon Dioxide 23 mmol/L (21-32) 01/17/19 05:40 Anion Gap 5.0 (3-11) 01/17/19 05:40 BUN 5 mg/dl (7-18) L 01/17/19 05:40 Creatinine 0.63 mg/dl (0.6-1.2) 01/17/19 05:40 Est Cr Clr Drug Dosing 86.5 ml/min 01/17/19 05:40 Est GFR ( Amer) 107.6 01/17/19 05:40 Est GFR (Non-Af Amer) 92.8 01/17/19 05:40 BUN/Creatinine Ratio 7.8 (10-20) L 01/17/19 05:40 Glucose 94 mg/dl (70-99) 01/17/19 05:40 POC Lactic Acid Marcel 0.71 mmol/L (0.90-1.70) L 01/15/19 17:24 Calcium 7.9 mg/dl (8.5-10.1) L 01/17/19 05:40 Total Bilirubin 0.3 mg/dl (0.2-1) 01/17/19 05:40 AST 12 U/L (15-37) L 01/17/19 05:40 ALT 23 U/L (12-78) 01/17/19 05:40 Alkaline Phosphatase 53 U/L (45-117) 01/17/19 05:40 Troponin I < 0.015 ng/ml (0-0.045) 01/15/19 15:30 Total Protein 6.0 gm/dl (6.4-8.2) L 01/17/19 05:40 Albumin 2.8 gm/dl (3.4-5.0) L 01/17/19 05:40 Globulin 3.2 gm/dl (2.5-4.0) 01/17/19 05:40 Albumin/Globulin Ratio 0.9 (0.9-2) 01/17/19 05:40 Lipase 74 U/L (73-393) 01/15/19 15:30 Procalcitonin 0.13 ng/ml (0-0.5) 01/15/19 15:30 Stl C. diff Tox B Gene Positive Cdiff Gene (Neg) H 01/15/19 21:00 Stl C.difficile Tox A&B Negative Cdiff Toxin (Negative) 01/15/19 21:00 Hepatitis C Ab Screen Neg (Neg) 01/16/19 05:52 PG Care Time/CCT Total # of Minutes Spent Total Time Spent with Patient: Total time spent is greater than 50% in coordination of care (as documented) at patient's floor/unit and/or counseling patient: Resident Activity Tracking Resident Involvement: Resident Care Provided Care Provided: Adult Hospital Medicine
[2019-01-17] MEDS: FAMOTIDINE 20 MG in SYRINGE 3 ML IV SCH ×2 (08:21→08:56)
--- NOTE | 2019-01-17 11:54 | History & Physical Bridge Note ---
Date of Service January 17, 2019 History & Physical Bridge Note I have examined the patient, reviewed the History & Physical and in the interval since the performance of the History & Physical I have noted the following changes of clinical significance: no changes noted Pt did well overnight. After bowel prep did have mucus, bloody loose BMs till about 11P. After that just loose to watery stools w/o bleeding, but mucus present. She denies much abd pain/cramping. NPO for planned EGD/Colonoscopy today. VS, labs reviewed Exam: - AAOx3 in NAD - CTA bilateral lungs - HRR no murmur or gallops - BS hypoactive, non tender, soft - No edema on extremities GI will give further recs after EGD/Colonoscopy are completed Supervising Physician Co-Signing Physician Notes I performed a history and physical examination of the patient, including specifically on physical exam - soft, nontender abdomen. I have discussed the patient's management with Carmen. Please refer to the nurse practitioner's note for the documented findings and plan of care.
--- NOTE | 2019-01-17 13:28 | Anesthesiology Consultation ---
Date of Service January 17, 2019 Assessment & Plan Chart Review Chart Review: Acceptable Risk for Surgery Consults Requested none History Surgery Operation Date: 01/17/19 08:30 Proposed Procedures p Colonoscopy EGD Dr. Sevilla - Clara Sevilla MD Height/Weight Height: 5 ft 4 in Weight: 76 kg Allergies Allergy/AdvReac Type Severity Reaction Status Date / Time Penicillins AdvReac Intermediate Rash Unverified 01/15/19 15:15 Sulfa (Sulfonamide AdvReac Intermediate Rash Unverified 01/15/19 15:15 Antibiotics) Medications Home Medications Medication Instructions Recorded Confirmed Last Taken acetaminophen [Tylenol] 650 mg PO Q6H PRN 01/15/19 01/15/19 01/15/19 azelastine 1 spray INTRANASAL DAILY 01/15/19 01/15/19 01/15/19 fluticasone propionate [Flonase 1 spray INTRANASAL DAILY 01/15/19 01/15/19 01/15/19 Allergy Relief] Active Medications Generic Name Dose Route Start Last Admin Trade Name Freq PRN Reason Stop Dose Admin Acetaminophen 650 mg 01/15/19 21:28 01/16/19 06:02 Tylenol PO 02/14/19 21:27 650 mg Q6H PRN Administration Pain Aspirin 81 mg 01/16/19 09:00 01/17/19 07:55 Ecotrin Ectab PO 02/15/19 08:59 81 mg QAM RENO Administration Enoxaparin Sodium 40 mg 01/15/19 21:28 01/16/19 21:02 Lovenox SQ 02/14/19 21:27 Not Given Q24H RENO Fluticasone Propionate 1 sprays 01/16/19 09:00 01/17/19 07:55 Flonase NA 02/15/19 08:59 1 sprays DAILY RENO Administration Potassium Chloride/Sodium Chloride 20 meq in 1,000 mls @ 125 mls/hr 01/16/19 09:00 01/17/19 08:20 Normal Saline W/20 Meq Kcl IV 02/15/19 08:59 125 mls/hr .Q8H RENO Administration Famotidine 20 mg/ Syringe 5 mls @ 2.5 mls/min 01/16/19 21:00 01/17/19 08:56 IV 02/15/19 20:59 2.5 mls/min BID RENO Administration Miscellaneous 1 ea 01/16/19 00:00 01/17/19 07:56 Order Awaiting Action N/A 02/15/19 00:00 Not Given QS RENO Raspberry 5 ml 01/16/19 00:00 01/17/19 11:58 Raspberry PO 01/30/19 00:00 5 ml Q6 RENO Administration Vancomycin HCl 125 mg 01/16/19 00:00 01/17/19 11:57 Vancomycin Hcl PO 01/26/19 00:00 125 mg Q6 RENO Administration NPO Date Last Intake of Fluids: 01/17/19 Time Last Intake of Fluids: 00:00 Date Last Intake of Solids: 01/17/19 Time Last Intake of Solids: 00:00 Past Medical History Medical History Sinus complaint (Acute) Gastritis Seasonal allergies Past Family History Family History Sister Heart disease Brother Heart disease Social History Smoking Status: Former smoker Hx Alcohol Use: No Hx Substance Use: No Physical Exam Vital Signs Last Vital Signs Temp 37.1 C 01/17/19 13:17 Pulse 96 H 01/17/19 13:17 Resp 18 01/17/19 13:17 BP 150/83 H 01/17/19 13:17 Pulse Ox 98 01/17/19 13:17 Testing Laboratory Results 01/17/19 05:40 01/17/19 05:40 01/16/19 14:00 Escherichia coli Shiga Toxins Test - Preliminary Stool Stool Culture - Preliminary No Salmonella isolated to date, No Shigella isolated to date, No Campylobacter jejuni isolated to date. 01/16/19 14:00 WBC Smear - Final Stool 01/15/19 21:00 Escherichia coli Shiga Toxins Test - Preliminary Stool Stool Culture - Preliminary No Salmonella isolated to date, No Shigella isolated to date, No Campylobacter jejuni isolated to date.
[2019-01-17] MEDS ORDERED: PROPOFOL IV EMULSION 10 MG/ML 20 ML VIAL IV ONE (14:11)
[2019-01-17] MEDS ORDERED: LIDOCAINE HCL 2% 2 ML VIAL/AMP(20MG/ML) INFIL ONE (14:11)
[2019-01-17] MEDS ORDERED: fentaNYL citrate 100 MCG/2 ML VIAL ONE (14:17)
--- NOTE | 2019-01-17 15:12 | Anesthesiology Progress Note ---
Date of Service January 17, 2019 Anesthesia Post Procedure Vital Signs Vital Signs: Temp Pulse Resp BP Pulse Ox 01/17/19 15:02 37.1 C 78 20 112/57 L 96 01/17/19 13:17 37.1 C 96 H 18 150/83 H 98 01/17/19 07:25 36.9 C 87 16 133/71 98 01/16/19 22:43 36.9 C 70 18 148/76 H 100 01/16/19 15:23 36.7 C 76 17 145/77 H 99 Pain Intensity Left Abdomen: Pain Intensity: 3 Transfer of Care Handoff Completed per policy Notes Mental Status: alert / awake / arousable and participated in evaluation Patient Amnestic to Procedure: Yes Nausea / Vomiting: adequately controlled Pain: adequately controlled Airway Patency, RR, SpO2: stable & adequate BP & HR: stable & adequate Hydration State: stable & adequate Anesthetic Complications: no major complications apparent
--- NOTE | 2019-01-17 15:14 | GI REPORT ---
Patient Name: Tammy Rosado Procedure Date: 01/17/2019 2:27 PM Date of : 1950 Admit Type: Inpatient Age: 68 Gender: Female Attending MD: Clara Sevilla MD Procedure: Colonoscopy Providers: Clara Sevilla MD Referring MD: Priya Christy Md Indications: Diarrhea Medicines: Monitored Anesthesia Care Complications: No immediate complications. Estimated Blood Loss: Estimated blood loss: none. Procedure: Pre-Anesthesia Assessment: - Prior to the procedure, a History and Physical was performed, and patient medications and allergies were reviewed. The patient is competent. The risks and benefits of the procedure and the sedation options and risks were discussed with the patient. All questions were answered and informed consent was obtained. Patient identification and proposed procedure were verified by the physician and the nurse in the procedure room. Mental Status Examination: alert and oriented. Airway Examination: normal oropharyngeal airway and neck mobility. Respiratory Examination: clear to auscultation. CV Examination: normal. ASA Grade Assessment: III - A patient with severe systemic disease. After reviewing the risks and benefits, the patient was deemed in satisfactory condition to undergo the procedure. The anesthesia plan was to use monitored anesthesia care (MAC). Immediately prior to administration of medications, the patient was re-assessed for adequacy to receive sedatives. The heart rate, respiratory rate, oxygen saturations, blood pressure, adequacy of pulmonary ventilation, and response to care were monitored throughout the procedure. The physical status of the patient was re-assessed after the procedure. After I obtained informed consent, the scope was passed under direct vision. Throughout the procedure, the patient's blood pressure, pulse, and oxygen saturations were monitored continuously. The Colonoscope was introduced through the anus and advanced to the terminal ileum. The colonoscopy was performed without difficulty. The patient tolerated the procedure well. The quality of the bowel preparation was good. The terminal ileum, ileocecal valve, appendiceal orifice, and rectum were photographed. Findings: The perianal and digital rectal examinations were normal. The terminal ileum appeared normal. A 3 mm polyp was found in the transverse colon. The polyp was sessile. The polyp was removed with a cold biopsy forceps. Resection and retrieval were complete. An area of mildly erythematous mucosa was found in the sigmoid colon. Biopsies were taken with a cold forceps for histology. Verification of patient identification for the specimen was done by the physician and nurse using the patient's name and date. Normal mucosa was found in the remaining colon. Biopsies were taken with a cold forceps for histology. The retroflexed view of the distal rectum and anal verge was normal and showed no anal or rectal abnormalities. Impression: - The examined portion of the ileum was normal. - One 3 mm polyp in the transverse colon, removed with a cold biopsy forceps. Resected and retrieved. - Erythematous mucosa in the sigmoid colon. Biopsied. - Normal mucosa in the remaining colon. Biopsied. - The distal rectum and anal verge are normal on retroflexion view. Recommendation: - [facility] care. - Await pathology results. - Repeat colonoscopy for surveillance based on pathology results. Clara Sevilla MD 01/17/2019 3:14:00 PM This report has been signed electronically. Note Initiated On: 01/17/2019 2:27 PM Number of Addenda: 0 I attest to the content of the Intraoperative Record and orders documented therein, exceptions below {[id number]}
--- NOTE | 2019-01-17 15:16 | GI REPORT ---
Patient Name: Tammy Rosado Procedure Date: 01/17/2019 2:13 PM Date of : 1950 Admit Type: Inpatient Age: 68 Gender: Female Attending MD: Clara Sevilla MD Procedure: Upper GI endoscopy Providers: Clara Sevilla MD Referring MD: Sebas Rios Indications: Abdominal pain, Diarrhea Medicines: Monitored Anesthesia Care Complications: No immediate complications. Estimated Blood Loss: Estimated blood loss: none. Procedure: Pre-Anesthesia Assessment: - Prior to the procedure, a History and Physical was performed, and patient medications and allergies were reviewed. The patient is competent. The risks and benefits of the procedure and the sedation options and risks were discussed with the patient. All questions were answered and informed consent was obtained. Patient identification and proposed procedure were verified by the physician and the nurse in the procedure room. Mental Status Examination: alert and oriented. Airway Examination: normal oropharyngeal airway and neck mobility. Respiratory Examination: clear to auscultation. CV Examination: normal. ASA Grade Assessment: III - A patient with severe systemic disease. After reviewing the risks and benefits, the patient was deemed in satisfactory condition to undergo the procedure. The anesthesia plan was to use monitored anesthesia care (MAC). Immediately prior to administration of medications, the patient was re-assessed for adequacy to receive sedatives. The heart rate, respiratory rate, oxygen saturations, blood pressure, adequacy of pulmonary ventilation, and response to care were monitored throughout the procedure. The physical status of the patient was re-assessed after the procedure. After obtaining informed consent, the endoscope was passed under direct vision. Throughout the procedure, the patient's blood pressure, pulse, and oxygen saturations were monitored continuously. The Endoscope was introduced through the mouth, and advanced to the second part of duodenum. The upper GI endoscopy was accomplished without difficulty. The patient tolerated the procedure well. Findings: LA Grade A (one or more mucosal breaks less than 5 mm, not extending between tops of 2 mucosal folds) esophagitis with no bleeding was found at the gastroesophageal junction. Biopsies were taken with a cold forceps for histology. Verification of patient identification for the specimen was done by the physician and nurse using the patient's name and date. Mildly erythematous mucosa was found in the gastric antrum. Biopsies were taken with a cold forceps for Helicobacter pylori testing. The duodenal bulb and second portion of the duodenum were normal. Biopsies were taken with a cold forceps for histology. Impression: - LA Grade A reflux esophagitis. Biopsied. - Erythematous mucosa in the antrum. Biopsied. - Normal duodenal bulb and second portion of the duodenum. Biopsied. Recommendation: - Await pathology results. - Follow an antireflux regimen. - Use a proton pump inhibitor PO daily for 2 months. - Perform a colonoscopy today. Clara Sevilla MD 01/17/2019 3:16:04 PM This report has been signed electronically. Note Initiated On: 01/17/2019 2:13 PM Number of Addenda: 0 I attest to the content of the Intraoperative Record and orders documented therein, exceptions below {[id number]}
[2019-01-17] MEDS ORDERED: PANTOprazole 40 MG TAB PO ONE (17:00)
[2019-01-17 17:20] LABS: Hematocrit (blood only) 26.9 % (37-47); Hemoglobin 8.9 g/dL (12.0-16.0)
--- NOTE | 2019-01-17 18:45 | Progress Note ---
Date of Service January 17, 2019 Subjective EGD and colonoscopy overall unremarkable. 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 Recommend: Bentyl and antidiarrheal as needed. Follow up in GI office. recall uif needed. Results & Data Vital Signs (Past 12 Hours) Vital Signs Temp Pulse Resp BP BP Pulse Ox 01/17/19 18:06 36.5 C 84 17 151/83 H 99 01/17/19 17:40 36.9 C 73 17 161/81 H 100 01/17/19 15:51 36.3 C L 68 17 137/77 100 01/17/19 15:32 68 20 139/73 99 01/17/19 15:17 71 20 121/65 97 01/17/19 15:02 37.1 C 78 20 112/57 L 96 01/17/19 13:17 37.1 C 96 H 18 150/83 H 98 01/17/19 07:25 36.9 C 87 16 133/71 98
[2019-01-17] MEDS: ENOXAPARIN INJ 40 MG/0.4 ML SYR SQ SCH (20:34)
[2019-01-18] MEDS: NSS + 20MEQ KCL 20 MEQ/1,000 ML BAG IV SCH ×2 (00:51→08:41)
[2019-01-18] MEDS: RASPBERRY SYRUP 5 ML UDP PO SCH ×3 (05:32→11:53)
[2019-01-18] MEDS: VANCOMYCIN HCL 125 MG/2.5ML SOLN PO SCH ×3 (05:33→11:53)
[2019-01-18] MEDS: ACETAMINOPHEN 325 MG TAB PO PRN (05:35)
[2019-01-18 06:00] LABS: Basophils # (auto) 0.04 K/uL (0-0.2); Basophils % (auto) 0.6 %; Eosinophils # (auto) 0.21 K/uL (0-0.5); Eosinophils % (auto) 3.2 %; Hemoglobin 9.1 g/dL (12.0-16.0); Immature Granulocytes # (auto) 0.05 K/uL (0.00-0.02); Immature Granulocytes % (auto) 0.8 %; Lymphocytes # (auto) 1.73 K/uL (1.2-3.4); Lymphocytes % (auto) 26.2 %; Mean Corpuscular Hgb Conc 33.7 g/dL (32-36); Mean Corpuscular Volume 86.3 fL (80-100); Mean Platelet Volume 9.1 fL (7.4-10.4); Monocytes # (auto) 0.42 K/uL (0.11-0.59); Monocytes % (auto) 6.4 %; Neutrophils # (auto) 4.16 K/uL (1.4-6.5); Neutrophils % (auto) 62.8 %; Platelet Count 295 K/uL (130-400); RDW Coefficient of Variation 13.4 % (11.5-14.5); RDW Standard Deviation 42.7 fL (36.4-46.3); Red Blood Count 3.13 M/uL (4.2-5.4); White Blood Count 6.61 K/uL (4.8-10.8)
[2019-01-18 06:20] LABS: BUN Creatinine Ratio 9.1 (10-20); Calcium 8.2 mg/dl (8.5-10.1); Creatinine Clr Calc Pharmacy 71.7 ml/min; Est GFR (African American) 94.1; Est GFR (Non-African American) 81.2; Potassium 3.6 mmol/L (3.5-5.1)
[2019-01-18] MEDS ORDERED: PANTOprazole 40 MG TAB PO SCH (09:00)
[2019-01-18] MEDS: FLUTICASONE PROPIONATE NA SPR 16 GM BTL SCH (09:35)
[2019-01-18] MEDS: ASPIRIN 81 MG ECTAB PO SCH (09:37)
--- NOTE | 2019-01-18 09:47 | Family Medicine Progress Note ---
Date of Service January 18, 2019 Assessment & Plan (1) Pancolitis: Patient is a 68F with PMHx Factor V Lieden Chronic GERD who presented initially with lower abdominal pain and recurrent bloody diarrhea. Pancolitis - ED CT abd showed diffuse inflammation of colon without obvious source - 2 separate antibiotic exposures in past 6 months - Recently on Cipofloxacin and metronidazole earlier this month for similar presentation of symptoms - C. Diff gene positive, toxin negative - presumptively treating for infection with contact precautions and Vanc 125 PO Q6 - Stool cultures for salmonella, campylobacter, EHEC, ova & parasites - Cultures negative. 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 - Continue IV Vancomycin Chronic GERD -IV Famotidine D/C'd -Pantoprazole 40mg QAM Factor V Lieden -Aspirin 81mg -Lovenox + SCD for DVT prophylaxis FEN/GI - NSS+20meq K, HH diet Code - Full DVT - Lovenox + SCDs (2) Chronic GERD: (3) Factor V Leiden: Supervising Physician Co-Signing Physician Notes Please see my attestation in the discharge summary the same day. Subjective Patient is a 68 year old female PMHx Factor V Lieden, Chronic GERD, and non- allergic rhinitis. Patient states that she is feeling better today and that her only complaint is some lower abdominal cramping. She states she can almost "feel the food moving" through her bowels. She did have a regular dinner the night prior and was eating breakfast comfortably today during the examination. She denies any nausea or vomiting with eating. She does note she has not had a bowel movement yet, but hopes to later this morning after eating. She has no other complaints at this time. Review of Systems Constitutional: no fever, no chills, no body aches and no weakness Eyes: no eye pain Ear, Nose, Mouth, Throat: no ear pain, no tinnitus, no hearing loss and no dizziness Respiratory: no cough, no chest congestion, no dyspnea and no dyspnea on exertion Cardiovascular: no chest pain, no dyspnea, no dyspnea on exertion, no palpitations, no edema and no calf pain Gastrointestinal: + cramping (particularly in LRQ); no abdominal pain, no belching, no nausea and no vomiting Genitourinary: no dysuria, no urinary frequency and no hematuria Integumentary: no rash Neurologic: + headache(s) Physical Exam Constitutional: WD/WN, vitals as above well developed, well nourished, + t hin, well groomed, cooperative and comfortable; no acute distress Eyes: PERRL, conjunctivae normal, anicteric sclerae ENMT: external ear and nose normal, oropharynx normal Ears: no hearing impairment Neck: normal visual inspection and trachea midline; neck nontender Respiratory: normal respiratory effort, lungs clear to auscultation Auscultation: no crackles, no rales, no rhonchi and no wheezes Cardiovascular: RRR, no murmur, no edema Heart Sounds: normal S1 and normal S2 Gastrointestinal (Abdomen): Inspection/Auscultation: abdomen normal to inspection and normal bowel sounds Percussion/Palpation: + abdomen tender (slight tenderness to palpation of lower quadrants) and abdomen soft; no guarding Skin: no rashes, warm and dry no jaundice Psychiatric: A+Ox3, euthymic affect Orientation: alert and oriented x 3 Lymphatic: no lymphedema Results & Data Vital Signs (Past 12 Hours) Vital Signs Temp Pulse Resp BP BP Pulse Ox 01/18/19 07:19 36.9 C 70 20 144/69 H 98 01/17/19 23:00 36.7 C 74 18 132/71 99 Laboratory Results Abnormal lab results 01/17/19 01/18/19 01/18/19 Range/Units 17:11 05:21 05:21 RBC 3.13 L (4.2-5.4) M/uL Hgb 8.9 L 9.1 L (12.0-16.0) g/dL Hct 26.9 L 27.0 L (37-47) % Immature Gran # (Auto) 0.05 H (0.00-0.02) K/uL Chloride 113 H (98-107) mmol/L BUN/Creatinine Ratio 9.1 L (10-20) Calcium 8.2 L (8.5-10.1) mg/dl Medications Administered Current Inpatient Medications Acetaminophen (Tylenol) 650 mg PO Q6H PRN PRN Reason: Pain Stop: 02/14/19 21:27 Last Admin: 01/18/19 05:35 Dose: 650 mg Documented by: Aspirin (Ecotrin Ectab) 81 mg PO QAM [facility] Stop: 02/15/19 08:59 Last Admin: 01/18/19 09:37 Dose: 81 mg Documented by: Dicyclomine HCl (Bentyl) 10 mg PO BID PRN PRN Reason: Cramping Stop: 02/15/19 20:59 Enoxaparin Sodium (Lovenox) 40 mg SQ Q24H RENO Stop: 02/14/19 21:27 Last Admin: 01/17/19 20:34 Dose: 40 mg Documented by: Fluticasone Propionate (Flonase) 1 sprays NA DAILY [facility] Stop: 02/15/19 08:59 Last Admin: 01/18/19 09:35 Dose: 1 sprays Documented by: Potassium Chloride/Sodium Chloride (Normal Saline W/20 Meq Kcl) 20 meq in 1,000 mls @ 125 mls/hr IV .Q8H [facility] Stop: 02/15/19 08:59 Last Admin: 01/18/19 08:41 Dose: 125 mls/hr Documented by: Miscellaneous (Order Awaiting Action) 1 ea N/A QS [facility] Stop: 02/15/19 00:00 Last Admin: 01/18/19 09:35 Dose: 1 ea Documented by: Pantoprazole Sodium (Protonix) 40 mg PO QAM [facility] Stop: 02/17/19 08:59 Last Admin: 01/18/19 09:36 Dose: 40 mg Documented by: Raspberry (Raspberry) 5 ml PO Q6 [facility] Stop: 01/30/19 00:00 Last Admin: 01/18/19 05:32 Dose: 5 ml Documented by: Vancomycin HCl (Vancomycin Hcl) 125 mg PO Q6 [facility] Stop: 01/26/19 00:00 Last Admin: 01/18/19 05:33 Dose: 125 mg Documented by: PG Care Time/CCT Total # of Minutes Spent Total Time Spent with Patient: Total time spent is greater than 50% in coordination of care (as documented) at patient's floor/unit and/or counseling patient: Resident Activity Tracking Resident Involvement: Resident Care Provided Care Provided: Adult Hospital Medicine
--- NOTE | 2019-01-18 13:36 | Discharge Summary ---
Date of Service January 18, 2019 Admission HPI Per Admitting Provider Ms. Rosado is a 68yo female with a PMHx of Factor V Leiden, HLD, GERD, nonallergic rhinitis and chronic constipation who presents with recurrent bloody diarrhea and lower abdominal pain. Pt states that the night before Jan 1 she was out eating at a restaurant in [place] and had some hamburger meat. Also took some miralax that night for chronic constipation and developed bloody diarrhea with crampy abd pain the next morning. She presented to the ED in [place] and a CT scan there showed colitis. She was started on a 7 day course of cipro and Flagyl but ended up taking it for 5 days after following up with her PCP and heaving seemingly resolved symptoms. She was symptom free for the last week before developing fevers, chills, night sweats with the crampy abdominal pain and bloody diarrhea once more. Stool has bright red blood , watery with mucus.States she also has associated nausea without vomitting. Of note pt states she was also treated for sinusitis in October with Clindamycin. Has a Hx of treated c.diff from 20years ago. PMHx: Factor V Leiden, HLD, Constipation, GERD, nonallergic rhinitis PSH: Hysterectomy, "vein treatments" Fam Hx: Mother: Alzheimer's, Father: Emphysema, COPD, Sister and Brother: Hx of DC Meds: Simvastatin, Flonase, Azelastine, baby aspirin ALLERGIES: PENICILLIN, SULFA DRUGS SH: Lives at home with ; spends half the year in [place]. Home here is 3 levels but the master bedroom is on first floor, few steps to enter the house. Currently retired, previously worked in [employer]. ED Course: CT showing pancolitis, WBC=20.98, given on dose of PO Vanc 125mg, NS S. Admission Exam Per Admitting Provider Constitutional: WD/WN, vitals as above Eyes: PERRL, conjunctivae normal, anicteric sclerae ENMT: external ear and nose normal, oropharynx normal Neck: normal visual inspection Respiratory: normal respiratory effort, lungs clear to auscultation Cardiovascular: RRR, no murmur, no edema Heart Sounds: normal S1 and normal S2 Gastrointestinal (Abdomen): Inspection/Auscultation: abdomen normal to inspection and normal bowel sounds; abdomen not distended Percussion/Palpation: + abdomen tender (in lower abdomen bilaterally) and abdomen soft; no guarding and no hepatosplenomegaly Musculoskeletal: no cyanosis or clubbing, extremities motor strength 5/5 Skin: no rashes, warm and dry Neurologic: PERRL, EOMI, accommodation nl, no face palsy, no dysarthria Principal Diagnosis Pancolitis Discharge Exam Constitutional WD/WN, vitals as above well developed, well nourished, + thin, well groomed, cooperative and comfortable; no acute distress Eyes PERRL, conjunctivae normal, anicteric sclerae ENMT external ear and nose normal, oropharynx normal Ears: no hearing impairment Neck normal visual inspection and trachea midline; neck nontender Respiratory normal respiratory effort, lungs clear to auscultation Auscultation: no crackles, no rales, no rhonchi and no wheezes Cardiovascular RRR, no murmur, no edema Heart Sounds: normal S1 and normal S2 Gastrointestinal (Abdomen) Inspection/Auscultation: abdomen normal to inspection and normal bowel sounds Percussion/Palpation: + abdomen tender (slight tenderness to palpation of lower quadrants) and abdomen soft; no guarding Skin no rashes, warm and dry no jaundice Psychiatric A+Ox3, euthymic affect Orientation: alert and oriented x 3 Lymphatic no lymphedema Discharge Data Allergies Allergy/AdvReac Type Severity Reaction Status Date / Time Penicillins AdvReac Intermediate Rash Unverified 01/15/19 15:15 Sulfa (Sulfonamide AdvReac Intermediate Rash Unverified 01/15/19 15:15 Antibiotics) Consultations 01/15/19 18:46 ED Decision to Admit Stat 01/15/19 22:36 Consult Gastroenterology Routine Procedures Performed Operation Date: 01/17/19 08:30 Actual Procedures p EGD Biopsy Cytology(Left) - Clara Sevilla MD s Colonoscopy Biopsy Cytology - Clara Sevilla MD Ordered Studies 01/15/19 15:45 CT abd pelvis IV con only Stat Hospital Course (1) Pancolitis: Patient is a 68F with PMHx Factor V Lieden Chronic GERD who presented initially with lower abdominal pain and recurrent bloody diarrhea. Pancolitis - ED CT abd showed diffuse inflammation of colon without obvious source. - Patient had 2 separate antibiotic exposures in past 6 months - Recently on Cipofloxacin and metronidazole earlier this month for similar presentation of symptoms while in [place]. - C. Diff gene positive, toxin negative - presumptively treated for infection with contact precautions and Vanc 125 PO Q6 - Stool cultures for salmonella, campylobacter, EHEC, ova & parasites - Cultures negative. 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 - Continue Vancomycin PO in the outpatient setting upon discharge. Chronic GERD -IV Famotidine D/C'd -Pantoprazole 40mg QAM Factor V Lieden -Aspirin 81mg -Lovenox + SCD were used for DVT prophylaxis while inpatient. (2) Chronic GERD: (3) Factor V Leiden: Total Time Total Time Spent Total Time Spent (In Minutes): >30 Discharge Plan Discharge Items Patient Disposition: Home - Self-Care Reason For Visit: COLITIS Discharge Diagnosis: Pancolitis Condition on Discharge: Good Activity: Resume your previous activity Non-emergency contact: Primary Care Provider and Silk Brusher Call non-emergency contact if: you have any medication questions, your symptoms worsen and your temperature is above 101 Follow-up/Referrals: Cl Meier DO [Primary Care Provider] - Diet: Heart Healthy Addtl Attending Provider Instructions: Ms. Rosado, you were admitted to the hospital initially for lower abdominal pain with associated bloody diarrhea. A CT scan of your abdomen in the ED showed that you had some inflammation in your colon but that there was obvious source. You also noted that you had recent antibiotic exposures and that you had been having similar symptoms when you were in [place] and were treated with antibiotics then. In the hospital you were treated with IV antibiotics which appeared to improve your symptoms. You also were seen by GI who did a scope of both your eso phagus and colon, both studies being fairly unremarkable. With improvement of your symptoms, you are being discharged today on oral antibiotics. Please follow the instructions listed below: -Please call and set up an appointment with a PCP (Dr. Lama) within the next 1- 3 days. -Please set up an appointment for follow up with GI within the next week. -Please take your antibiotic as prescribed: Vancomycin 125mg 1 pill by mouth every 6 hours for the following 7 days. -Please take your PPI for GERD as prescribed: Pantoprazole 40mg 1 pill by mouth every morning. -Please take your Aspirin 81mg for your history of Factor V Lieden: Aspirin 81mg 1 pill by mouth daily. -Please call if your PCP or dye range operator have any questions or concerns about your health. Pending Studies at Discharge: No Stand-Alone Forms: My [facility] Medications and DC Order Prescriptions: New aspirin [Ecotrin Low Strength] 81 mg Tablet,Delayed Release (Dr/Ec) 81 mg PO QAM Qty: 30 RF: 0 pantoprazole 40 mg Tablet,Delayed Release (Dr/Ec) 40 mg PO QAM Qty: 30 RF: 0 vancomycin 125 mg capsule 125 mg PO Q6H 7 Days Qty: 28 RF: 0 Continued acetaminophen [Tylenol] 325 mg Tablet 650 mg PO Q6H PRN (Reason: Pain) RF: 0 fluticasone propionate [Flonase Allergy Relief] 50 mcg/actuation Browning,Suspension 1 spray INTRANASAL DAILY RF: 0 azelastine 0.15 % (205.5 mcg) Browning,Non-Aerosol 1 spray INTRANASAL DAILY RF: 0 Discharge Orders: Discharge Order (Routine); Ordered 01/18/19 Ordered By: Michael Mcgraw Admission Data Admit Date/Time: 01/15/19 20:32 Attending Provider: Sebas Rios Admit Provider: Priya Christy Primary Care Provider: Cl Meier Other Providers: Jasmin Sibley ; Clara Sevilla ; Anjelica Lama Other Interventions: Discharge Summary Assessment (RN) Last Done: 01/18/19 13:43 DC Date/Time DO NOT enter until pt leaves facility: 01/18/19 14:12 Supervising Physician Co-Signing Physician Notes I saw the patient with the resident physician and confirmed mills portion of the history and physical exam. I agree with the impression and plan as noted above. Upon our examination, the patient was out of bed and seated in a chair. She has some very mild lower abdominal discomfort but really denies the cramping and pain she had upon admission. She has not had a bowel movements today. She is tolerating orals without nausea or vomiting. Results of the EGD and colonoscopy were reviewed yesterday. Discussed slowly advancing her diet; we also made some diet recommendations regarding avoiding raw vegetables which seem to have been causing her some symptoms after a recent change in her diet. After discussion, elected to complete a course of oral vancomycin as there was some question whether she had partially treated C. difficile infection upon arrival here -her symptoms initially started when she was in [place] and she was treated with ciprofloxacin and Flagyl. She had not been tested for C. difficile, although it is noted that the patient had a remote history of the same and symptoms were similar. Additionally, prior to the onset of symptoms, the patient was apparently on antibiotics for a sinus infection. The patient had initial improvement with ciprofloxacin and Flagyl but they quickly returned when she discontinued. Since she is improving on the vancomycin here, elected to complete course. Resident Activity Tracking Resident Involvement: Resident Care Provided Care Provided: Adult [facility]
== END 2019-01-18 14:12 | disposition home or self-care (01) | DRG 386 ==
LOC: ED 13:52 → 4W 20:32 → SUATTDRO 20:32 → 4W 21:13